=== PATIENT | female | born 1945 | race Caucasian/White ===

== ENCOUNTER 2020-04-02 08:28 | Inpatient (IN) ==
--- NOTE | 2020-03-01 13:00 | PAT Medication Instructions ---
Medication Instructions Date of Service March 01, 2020 Home Medications Medication Instructions Recorded albuterol sulfate 90 mcg/actuation 2 puffs INH Q4H PRN #3 inhaler 02/13/20 aerosol inhaler budesonide-formoterol HFA 160 2 puffs INH BID #3 inhaler 02/13/20 mcg-4.5 mcg/actuation aerosol inhaler atorvastatin 10 mg tablet 10 mg PO QPM esomeprazole magnesium 40 mg capsule,delayed release 40 mg PO QPM hydrochlorothiazide 25 mg tablet 25 mg PO QAM levothyroxine 75 mcg capsule 75 mcg PO QAM lisinopril 10 mg tablet 10 mg PO QPM loratadine 10 mg capsule 20 mg PO QAM potassium chloride 20 mEq tablet,extended release 20 meq PO QPM sitagliptin 100 mg tablet 100 mg PO QAM sucralfate 1 gram tablet 1 gm PO BID albuterol sulfate 90 mcg/actuation aerosol inhaler 2 puffs INH Q4H PRN budesonide-formoterol HFA 160 mcg-4.5 mcg/actuation aerosol inhaler 2 puffs INH BID Albuterol 1 inh INHALATION UD PRN 0 acetaminophen [Tylenol Arthritis Pain] 650 mg PO Q8H PRN alprazolam [Xanax] 0.25 mg PO BID PRN celecoxib [Celebrex] 200 mg PO BID tiotropium bromide [Spiriva Respimat] 2 puffs INH QAM ASK your surgeon for instructions celecoxib [Celebrex] 200 mg PO BID DO NOT take the morning of surgery loratadine 10 mg capsule 20 mg PO QAM sitagliptin 100 mg tablet 100 mg PO QAM sucralfate 1 gram tablet 1 gm PO BID hydrochlorothiazide 25 mg tablet 25 mg PO QAM Take morning of surgery With a small sip of water, OTHERWISE NOTHING TO EAT OR DRINK AFTER MIDNIGHT: albuterol sulfate 90 mcg/actuation aerosol inhaler 2 puffs INH Q4H PRN (use if needed; please bring with you to hospital day of surgery if possible) budesonide-formoterol HFA 160 mcg-4.5 mcg/actuation aerosol inhaler 2 puffs INH BID Albuterol 1 inh INHALATION UD PRN (if needed) acetaminophen [Tylenol Arthritis Pain] 650 mg PO Q8H PRN (okay to take up to 4 hours prior to surgery if needed) alprazolam [Xanax] 0.25 mg PO BID PRN (if needed) tiotropium bromide [Spiriva Respimat] 2 puffs INH QAM levothyroxine 75 mcg capsule 75 mcg PO QAM Take evening before surgery albuterol sulfate 90 mcg/actuation aerosol inhaler 2 puffs INH Q4H PRN (if needed) budesonide-formoterol HFA 160 mcg-4.5 mcg/actuation aerosol inhaler 2 puffs INH BID Albuterol 1 inh INHALATION UD PRN (if needed) acetaminophen [Tylenol Arthritis Pain] 650 mg PO Q8H PRN (if needed) alprazolam [Xanax] 0.25 mg PO BID PRN (if needed) lisinopril 10 mg tablet 10 mg PO QPM potassium chloride 20 mEq tablet,extended release 20 meq PO QPM sucralfate 1 gram tablet 1 gm PO BID atorvastatin 10 mg tablet 10 mg PO QPM esomeprazole magnesium 40 mg capsule,delayed release 40 mg PO QPM Other Notes If you have any questions please call us at [phone] or [phone] or [phone] or [phone]
--- NOTE | 2020-03-02 13:58 | Anesthesiology Consultation ---
Date of Service March 02, 2020 Assessment & Plan (1) Encounter for pre-operative examination: Chart Review Chart Review: Acceptable Risk for Surgery (pending PCP clearance and Covid testing) and Patient seen in Pre Admission Testing - Check BSG AM DOS Pending surgeon ordered PCP clearance scheduled 03/31 Per PAT appt 03/02/20- pt resides in [place]. No other travel. Educated Covid test needed done three business days prior to surgery- follow up with surgeon for this. Did educated patient on the importance of social distancing, masking and self quaranting from time of test until surgery. Teaching & Discussion Pre-Anesthesia Teaching/Discussion Notes: Instructed NPO after midnight before s urgery,except medications with 15 cc of water. Medication instructions provided according to the PAT guidelines. History Surgery Operation Date: 04/02/20 13:10 Proposed Procedures p Right Total Knee Arthroplasty - Jared Girard DO Height/Weight Height: 4 ft 11 in Weight: 70.3 kg Allergies Allergy/AdvReac Type Severity Reaction Status Date / Time latex Allergy Mild ITCHY SKIN Verified 02/27/20 11:02 WITH GLOVES aspirin Allergy Unknown Unknown Verified 02/27/20 11:01 doxycycline Allergy Unknown Unknown Verified 02/27/20 11:01 Iodinated Contrast Media Allergy Unknown Unknown Verified 02/27/20 11:01 Penicillins Allergy Unknown Unknown Verified 02/27/20 11:01 Medications Home Medications Medication Instructions Recorded Confirmed Last Taken atorvastatin 10 mg tablet 10 mg PO QPM 07/28/19 02/27/20 Unknown esomeprazole magnesium 40 mg 40 mg PO QPM cap 07/28/19 02/27/20 Unknown capsule,delayed release hydrochlorothiazide 25 mg tablet 25 mg PO QAM 07/28/19 02/27/20 Unknown levothyroxine 75 mcg capsule 75 mcg PO QAM 07/28/19 02/27/20 Unknown lisinopril 10 mg tablet 10 mg PO QPM 07/28/19 02/27/20 Unknown loratadine 10 mg capsule 20 mg PO QAM 07/28/19 02/27/20 Unknown potassium chloride 20 mEq 20 meq PO QPM 07/28/19 02/27/20 Unknown tablet,extended release sitagliptin 100 mg tablet 100 mg PO QAM 07/28/19 02/27/20 Unknown sucralfate 1 gram tablet 1 gm PO BID 07/28/19 02/27/20 Unknown albuterol sulfate 90 mcg/actuation 2 puffs INH Q4H PRN #3 inhaler 02/13/20 02/27/20 Unknown aerosol inhaler budesonide-formoterol HFA 160 2 puffs INH BID #3 inhaler 02/13/20 02/27/20 Unknown mcg-4.5 mcg/actuation aerosol inhaler Albuterol 1 inh INHALATION UD PRN 02/27/20 02/27/20 Unknown acetaminophen [Tylenol Arthritis 650 mg PO Q8H PRN 02/27/20 02/27/20 Unknown Pain] alprazolam [Xanax] 0.25 mg PO BID PRN 02/27/20 02/27/20 Unknown celecoxib [Celebrex] 200 mg PO BID 02/27/20 02/27/20 Unknown tiotropium bromide [Spiriva 2 puffs INH QAM 02/27/20 02/27/20 Unknown Respimat] Past Medical History Medical History Anxiety Asthma Well controlled and stable Barretts esophagus Chronic obstructive pulmonary disease Controlled and stable- follows with pulm Diabetes mellitus, type 2 Well controlled and stable GERD (gastroesophageal reflux disease) Well controlled and stable Hiatal hernia Hyperlipidemia Hypertension Hypothyroidism Osteoarthritis SOB (shortness of breath) on exertion DEPENDING HUMUDITY Exercise / Class Metabolic Activity III < 4 Walking/Shop/Light housework (going up hill- mild SOB no chest pain ) Past Family History Family History Sister Family history of reaction to anesthesia PONV Family history of diabetes mellitus Past Surgical History Surgical History H/O nasal septoplasty History of bilateral tubal ligation History of cholecystectomy History of colonoscopy X MULTIPLE History of esophagogastroduodenoscopy (EGD) Past Anesthesia History No Hx of Anesthesia Complications and No Family Hx of Anesthesia Complications (with exception with sister who has PONV ) History of PONV No Hx of PONV and Hx of Motion Sickness Social History Smoking Status: Never smoker Do You Dip or Chew Tobacco: No Hx Alcohol Use: No Hx Substance Use: No Review of Systems Mild chronic cough and LOPEZ- secondary to asthma/COPD Hx of sleep study- no FRANCESCA Blood transfusion with childbirth Patient denies chest pain, shortness of breath, wheezing, palpitations. No hx of seizures, stroke, [place], apnea/snoring. No hx of blood clots Physical Exam Vital Signs VITALS BP 137/72 P 84 TEMP 98.4 SP02 95% RESP 16 Constitutional no acute distress ENMT Mouth: no TMJ clicking Thyromental Distance: > or= 3.5 Finger Breadths (4.0) Mallampati Class: I Full dentures top and bottom Neck neck extension not limited Respiratory normal respiratory effort; no respiratory distress Auscultation: lungs clear to auscultation bilaterally; no wheezes Cardiovascular Rate/Rhythm: regular rate and regular rhythm Heart Sounds: no murmur Vessels: no carotid bruit Musculoskeletal Spine: no pain with cervical ROM Neurologic moves all extremities Psychiatric Orientation: alert Testing Laboratory Results 03/02/20 14:10 03/02/20 14:10 PT 10.6 Seconds (9.0-12.0) 03/02/20 14:10 INR 1.0 (0.9-1.1) 03/02/20 14:10 APTT 33.7 Seconds (21.0-31.0) H 03/02/20 14:10 Hemoglobin A1c 6.3 % (4.5-5.6) H 03/02/20 14:10 Urine Color Yellow 03/02/20 14:10 Urine Appearance Clear (Clear) 03/02/20 14:10 Urine pH 5.0 (4.5-7.5) 03/02/20 14:10 Ur Specific [place] 1.032 (1.000-1.030) H 03/02/20 14:10 Urine Protein Negative (Negative) 03/02/20 14:10 Urine Glucose (UA) Negative (Negative) 03/02/20 14:10 Urine Ketones Negative (Negative) 03/02/20 14:10 Urine Nitrite Negative (Negative) 03/02/20 14:10 Ur Leukocyte Esterase Negative (Negative) 03/02/20 14:10 Blood Type A Positive 03/02/20 14:10 Antibody Screen NEGATIVE 03/02/20 14:10 Electrocardiogram Date: 03/02/20 Findings: + NSR @ (82) Chest X-Ray Date: 03/02/20 Findings: + NAD Echocardiogram Date: 07/19/16 EF: 55% LV Function: normal RV mildly dilated with normal function. Mild AR/TR
--- NOTE | 2020-03-02 14:39 | XRay Report ---
XR chest Pre-admission PA/Lat CLINICAL HISTORY: PAT COMPARISON STUDY: No previous studies for comparison. FINDINGS: The bones soft tissues and hemidiaphragms are normal. The cardiomediastinal silhouette is n ormal. The lungs are clear. The pulmonary vasculature is normal. IMPRESSION: Negative chest. ACT 112: Negative or not required by law. The above report was generated using voice recognition software. It may contain grammatical, syntax or spelling errors. Electronically signed by: Dudley Zhu M.D. 03/02/2020 2:37 PM
[2020-03-02 15:41] LABS: Appearance Urine Clear (Clear); Basophils # (auto) 0.05 K/uL (0-0.2); Basophils % (auto) 0.7 %; Bilirubin Urine Negative (Negative); Blood Urine Negative (Negative); Color Urine Yellow; Eosinophils # (auto) 0.11 K/uL (0-0.5); Eosinophils % (auto) 1.5 %; Glucose Urine UA Negative (Negative); Hematocrit (blood only) 39.5 % (37-47); Hemoglobin 12.8 g/dL (12.0-16.0); Immature Granulocytes # (auto) 0.01 K/uL (0.00-0.02); Immature Granulocytes % (auto) 0.1 %; Ketones Urine Negative (Negative); Leukocyte Esterase Urine Negative (Negative); Lymphocytes # (auto) 1.31 K/uL (1.2-3.4); Lymphocytes % (auto) 17.6 %; Mean Corpuscular Hemoglobin 32.2 pg (25-34); Mean Corpuscular Hgb Conc 32.4 g/dL (32-36); Mean Corpuscular Volume 99.2 fL (80-100); Mean Platelet Volume 9.8 fL (7.4-10.4); Monocytes # (auto) 1.15 K/uL (0.11-0.59); Monocytes % (auto) 15.4 %; Neutrophils # (auto) 4.82 K/uL (1.4-6.5); Neutrophils % (auto) 64.7 %; Nitrite Urine Negative (Negative); Platelet Count 378 K/uL (130-400); Protein Urine Negative (Negative); RDW Coefficient of Variation 12.3 % (11.5-14.5); RDW Standard Deviation 44.7 fL (36.4-46.3); Red Blood Count 3.98 M/uL (4.2-5.4); Specific Gravity Urine 1.032 (1.000-1.030); Urobilinogen Urine Negative (Negative); White Blood Count 7.45 K/uL (4.8-10.8)
[2020-03-02 15:48] LABS: Albumin Level 3.6 gm/dl (3.4-5.0); BUN Creatinine Ratio 29.1 (10-20); Creatinine Clr Calc Pharmacy 44.9 ml/min; Est GFR (Non-African American) 61.3; Potassium 3.9 mmol/L (3.5-5.1)
[2020-03-02 15:57] LABS: Partial Thromboplastin Ratio 1.2; Partial Thromboplastin Time 33.7 Seconds (21.0-31.0); Prothrombin Time 10.6 Seconds (9.0-12.0)
[2020-03-03 06:40] LABS: Estimated Average Glucose 134 mg/dl; Hemoglobin A1C 6.3 % (4.5-5.6)
--- NOTE | 2020-03-03 15:16 | Electrocardiogram Report ---
Test Reason : Blood Pressure : / mmHG Vent. Rate : 082 BPM Atrial Rate : 082 BPM P-R Int : 148 ms QRS Dur : 088 ms QT Int : 396 ms P-R-T Axes : 079 019 071 degrees QTc Int : 462 ms Normal sinus rhythm Normal ECG No previous ECGs available Confirmed by Reinaldo Lugo ([id number]) on 03/03/2020 3:15:55 PM Referred By: Jared Girard Confirmed By:Poncho Lugo
--- NOTE | 2020-04-01 15:10 | History & Physical Report ---
Date of Service April 01, 2020 Assessment & Plan (1) Osteoarthritis of right knee: Schedule right TKA for 04.02.2020. All potential risks, benefits, complications, alternatives, and rehab have been discussed with the patient and she wishes to proceed. Plan for ASA 81 mg BID x 4 wks post op for DVT prophylaxis. (2) Flexion contracture of right knee: (3) Genu varum of right lower extremity: History of Present Illness Chief Complaint: right knee pain Primary Care Provider: Mauri Herbert DO This is a patient with chronic right knee pain treated conservatively for knee osteoarthritis for many years. She has failed all conservative management and is now being set up for a right TKA. Allergies Allergy/AdvReac Type Severity Reaction Status Date / Time latex Allergy Mild ITCHY SKIN Verified 02/27/20 11:02 WITH GLOVES aspirin Allergy Unknown Unknown Verified 02/27/20 11:01 doxycycline Allergy Unknown Unknown Verified 02/27/20 11:01 Iodinated Contrast Media Allergy Unknown Unknown Verified 02/27/20 11:01 Penicillins Allergy Unknown Unknown Verified 02/27/20 11:01 Home Medications Home Medications Medication Instructions Recorded Confirmed Type atorvastatin 10 mg tablet 10 mg PO QPM 07/28/19 02/27/20 History esomeprazole magnesium 40 mg 40 mg PO QPM cap 07/28/19 02/27/20 History capsule,delayed release hydrochlorothiazide 25 mg tablet 25 mg PO QAM 07/28/19 02/27/20 History levothyroxine 75 mcg capsule 75 mcg PO QAM 07/28/19 02/27/20 History lisinopril 10 mg tablet 10 mg PO QPM 07/28/19 02/27/20 History loratadine 10 mg capsule 20 mg PO QAM 07/28/19 02/27/20 History potassium chloride 20 mEq 20 meq PO QPM 07/28/19 02/27/20 History tablet,extended release sitagliptin 100 mg tablet 100 mg PO QAM 07/28/19 02/27/20 History sucralfate 1 gram tablet 1 gm PO BID 07/28/19 02/27/20 History albuterol sulfate 90 mcg/actuation 2 puffs INH Q4H PRN #3 inhaler 02/13/20 02/27/20 Rx aerosol inhaler budesonide-formoterol HFA 160 2 puffs INH BID #3 inhaler 02/13/20 02/27/20 Rx mcg-4.5 mcg/actuation aerosol inhaler Albuterol 1 inh INHALATION UD PRN 02/27/20 02/27/20 History acetaminophen [Tylenol Arthritis 650 mg PO Q8H PRN 02/27/20 02/27/20 History Pain] alprazolam [Xanax] 0.25 mg PO BID PRN 02/27/20 02/27/20 History celecoxib [Celebrex] 200 mg PO BID 02/27/20 02/27/20 History tiotropium bromide [Spiriva 2 puffs INH QAM 02/27/20 02/27/20 History Respimat] Past Med/Surg History Medical History Anxiety Asthma Well controlled and stable Barretts esophagus Chronic obstructive pulmonary disease Controlled and stable- follows with pulm Diabetes mellitus, type 2 Well controlled and stable GERD (gastroesophageal reflux disease) Well controlled and stable Hiatal hernia Hyperlipidemia Hypertension Hypothyroidism Osteoarthritis SOB (shortness of breath) on exertion DEPENDING HUMUDITY Surgical History H/O nasal septoplasty History of bilateral tubal ligation History of cholecystectomy History of colonoscopy X MULTIPLE History of esophagogastroduodenoscopy (EGD) Family History Sister Family history of reaction to anesthesia PONV Family history of diabetes mellitus Social History (System 01/12/19 @ 15:10 by Avelina Aleman) Preferred Language: Honduran Communication Ability: Effective Marking Devices Assembler Required: No Beliefs That Will Affect Care: None Current Living Situation: Alone Other Information That Helps Us Care for You: No Feels Safe at Home: Yes Safety Concerns: Feels Safe At This Time Smoking Status: Never smoker Do You Dip or Chew Tobacco: No ; Second Hand Exposure: Yes ; Hx Alcohol Use: No Hx Substance Use: No Physical Exam Constitutional: well developed and well nourished; no acute distress ENMT: external ear and nose normal, oropharynx normal Neck: trachea midline, no thyromegaly Respiratory: normal respiratory effort, lungs clear to auscultation Auscultation: + diminished lung sounds Cardiovascular: Rate/Rhythm: regular rate and regular rhythm Gastrointestinal (Abdomen): normal bowel sounds, soft, nontender, no hepatosplenomegaly Musculoskeletal: Gait: + antalgic gait (right) Knee: + limited ROM of knee (right knee 5-120 degrees), + joint line tenderness (right medial and lateral joint space) and + varus alignment (right); no skin erythema and no ecchymosis Skin: no rashes, warm and dry Neurologic: normal touch/pain/proprioception Psychiatric: A+Ox3, euthymic affect Speech: normal rate/rhythm/volume of speech Lymphatic: no cervical or axillary lymphadenopathy
[~2020-04-02 08:28] MED LIST: ACETAMINOPHEN 500 MG TAB PO SCH; BUPIVACAINE 0.25% 30 ML VIAL ONE; BUPIVACAINE 0.5 % 5 MG/1 ML PF 10ML VIAL ONE; CeleBREX 200 MG CAP PO SCH; FAMOTIDINE 20 MG TAB PO SCH; GABAPENTIN 300 MG CAP PO SCH; LR 500ML BOLUS, THEN 15ML/HR IV SCH; METOCLOPRAMIDE HCL 10 MG TABLET PO SCH; ROPIVACAINE 0.5% HCL/PF 150 MG, BUPIVACAINE 0.5% MPF 30 ML, EPINEPHrine 30MG/30ML (OR U... INSTIL SCH; VANCOMYCIN HCL 1,000 MG/270 ML BAG IV SCH; dexAMETHasone 4 MG TAB PO SCH
[2020-04-02] MEDS ORDERED: ATROPINE SULFATE 0.1 MG/ML 10ML SYR IV PRN (08:42)
[2020-04-02] MEDS ORDERED: ONDANSETRON INJ 2 MG/ML 2 ML VIAL IV PRN ×2 (08:42→15:43)
[2020-04-02] MEDS ORDERED: fentaNYL citrate 100 MCG/2 ML VIAL IV PRN (08:42)
[2020-04-02] MEDS ORDERED: ePHEDrine sulfate 50 MG/ML AMP IV PRN (08:42)
[2020-04-02] MEDS ORDERED: PROPOFOL IV EMULSION 10 MG/ML 20 ML VIAL IV ONE (08:48)
[2020-04-02] MEDS ORDERED: LIDOCAINE HCL 2% 2 ML VIAL/AMP(20MG/ML) INFIL ONE (08:48)
[2020-04-02] MEDS ORDERED: ONDANSETRON INJ 2 MG/ML 2 ML VIAL ONE (08:48)
[2020-04-02] MEDS ORDERED: MIDAZOLAM HCL 1 MG/ML 2ML VIAL ONE (08:49)
[2020-04-02] MEDS ORDERED: fentaNYL citrate 100 MCG/2 ML VIAL ONE (08:49)
[2020-04-02] MEDS ORDERED: ALBUT/IPRATROP 3MG/0.5MG NEB 3 ML VIAL NEB STA (10:18)
--- NOTE | 2020-04-02 10:51 | History & Physical Bridge Note ---
Date of Service April 02, 2020 History & Physical Bridge Note I have examined the patient, reviewed the History & Physical and in the interval since the performance of the History & Physical I have noted the following changes of clinical significance: no changes noted
[2020-04-02] MEDS ORDERED: BACITRACIN INJ 50,000 UNIT VIAL ONE (11:09)
[2020-04-02] MEDS ORDERED: ORTHO JOINT ANESTHETIC ONE (11:09)
--- NOTE | 2020-04-02 13:56 | Post Operative Brief Note ---
Immediate Post Op Note v1 Date of Surgery April 02, 2020 Pre & Post Diagnosis Operation Date: 04/02/20 10:50 Pre-Op Diagnosis: Unilateral Primary Osteoarthritis, Right Knee, degenerative joint disease right knee, genu varum, right knee pain Post-Op Diagnosis: Unilateral Primary Osteoarthritis, Right Knee, degenerative joint disease right knee, genu varum, right knee pain I identified the patient and participated in the time-out.: Yes Procedure Operation Date: 04/02/20 10:50 Actual Procedures p Right Total Knee Arthroplasty with Lopez & Nephew MRI matched components femur size 5, tibia size 3, 32 mm patella, 12 mm posterior stabilized polyethylene (Right) - Jared Girard DO Surgeon Jared Girard DO Stock Fitter Timur Rivera PA-C Estimated Blood Loss 5 Findings Consistent with Post-Op Diagnosis Specimens Bone and tissue right knee Drains Hemovac Drain Anesthesia Type Spinal MAC Complications none Disposition Accompanied Patient To Recovery: No Disposition: Recovery Room
--- NOTE | 2020-04-02 14:13 | Operative Report (OR) ---
DATE OF OPERATION: 04/02/2020 PREOPERATIVE DIAGNOSES: 1. Right knee osteoarthritis. 2. Degenerative joint disease, right knee. 3. Genu varum, right knee. 4. Right knee pain. POSTOPERATIVE DIAGNOSES: 1. Right knee osteoarthritis. 2. Degenerative joint disease, right knee. 3. Genu varum, right knee. 4. Right knee pain. PROCEDURE: Right total knee arthroplasty with Lopez and Nephew MRI matched components, size 5 femur, tibia size 3, 32 mm patella and 12 mm posterior stabilized polyethylene. SURGEON: Jared Girard DO. BUCK SWAMPER: CHANDAN Davey who was present for patient positioning, sterile prep and drape, management of retractors and instruments. He was present through the critical portions of the case including wound closure, application of sterile dressing and transport of the patient to recovery. ANESTHESIA: Spinal, MAC, regional. SPECIMENS: Bone and tissue, right knee. DRAINS: Hemovac x2. COMPLICATIONS: None. BLOOD LOSS: 5 mL. PERTINENT HISTORY: This is a 74-year-old female with chronic progressive and worsening right knee pain. She has attempted and failed conservative management including activity modification, anti-inflammatories, rest, physician-directed home exercises, intra-articular injections and use of an assistive device. Radiographs demonstrate marginal osteophytes, subchondral sclerosis, subchondral cyst, genu varum of the right knee with complete loss of medial joint space. The patient is scheduled for surgery as indicated. All potential risks, benefits, complications, alternatives, rehab potential for incomplete relief of symptoms, need for further surgery, DVT, PE, , persistent pain, swelling, scarring, weakness, neurovascular injury, wound complications, hardware failure, nonunion, malunion and bone fracture were discussed with the patient, and the patient decided to proceed with the procedure as indicated. PROCEDURE DESCRIPTION: The patient was taken to the Operating Suite and placed supine on the Operating Room table after the patient had been administered spinal epidural anesthetic and femoral nerve sheath catheter in the preop holding area. The patient was sedated. Proper operative site was identified. The tourniquet was placed high on the right lower extremity. Right lower extremity was then sterilely prepped and draped in the usual fashion. Elevated and exsanguinated with an Esmarch bandage. Tourniquet inflated to 350 mmHg. Next a midline 10-blade scalpel incision was made directly over the middle one-third of the patella extending to the level of the tibial tubercle. The incision was deepened through the subcutaneous tissue and meticulous hemostasis with electrocautery. Full-thickness skin flaps were developed taking care to avoid neurovascular bundles. Next, median parapatellar capsular incision was made 10-blade scalpel after the superior medial corner had been marked with a marking pen for later reapproximation. Next, patella was everted. Soft tissue releases were performed of the knee including along the anterior medial corner to the level of the MCL, which was protected and released adjacent to the MCL with Randle elevator. Fat pad was resected anteriorly and small half martínez portion of tissue was resected at the superior margin of the dermal articular surface. Next, the patella thickness was measured with caliper and held in everted position with Parish. Next, sagittal saw was used to make orthogonal cuts to the level of the patellar nose. Caliper was used to remeasure the patella and the appropriate sized patellar button, in this case size 32 mm was felt to be most appropriate. The alignment guide was then put in place. Peg holes were drilled and alignment guide was then removed. Next, the femoral cutting block was placed in the distal aspect of the femur and pinned in place. Next the distal femoral cut was made based off the patient's anatomy and MRI patient matched cutting block. Next, a size 5 distal 4-in-1 cutting block was tamped in place then stabilized with pins. Next, the appropriate soft tissue retraction was made and anterior chamfer and posterior chamfer cuts were made with the sagittal saw. Next, the 4-in-1 cutting block was then removed followed by removal of all bone fragments. Next, attention was then directed toward the proximal tibia. Blunt Jerome was placed posterior to the tibia to protract it anteriorly and median and lateral sharp Jerome retractors were placed. Soft tissue and portion of the menisci were then resected at this time and MRI matched proximal tibial cutting block was then pinned in place and proximal tibial cut was made with sagittal saw. Alignment guide was removed. Pins were removed and the proximal fragment of the tibia was then sharply excised and removed. Next, proximal tibial tray trial size 3 was then pinned in place and this was felt to be well matched for the patient's anatomy, pinned in place and keel punch was then utilized with marilyn. Keel punch was then removed and cervical laminar pricing intern was then placed in the medial compartment. The lateral compartment was then inspected for osteophytes and soft tissue impingement. There was found to be none. I then switched to the lateral compartment and medial compartment was then debrided of any soft tissue impingement. Next the laminar pricing intern was removed and the femoral trial, in this case size 5 was then malleted in place, pinned and then femoral notch milling guide was then placed anteriorly. This was then reamed and then punched with sharp punch and mallet. Next, the distal aspect of the femur was then inserted in notch guide and size 12 mm poly was inserted, reduced. Patellar button was then placed in trial and range of motion was performed. Next after range of motion and stability test was performed the implants were found to be appropriate size. Trials were all removed. The posterior capsule was injected with Orthomix. Next the joint was then cleansed with pulsatile lavage using approximately 3 liters normal saline with Bacitracin additive. Next all bony surfaces were then suctioned and drained and standard cementing technique was performed with Palacos G and all excess cement was then removed from around the implant site. A 12 mm posterior stabilized polyethylene bearing was implanted and checked for stability. The patellar button was then cemented in place and held in place with patellar clamp. After suitable drying time, sterile dilute Betadine was used to soak the incision for approximately 3 minutes. Next, a double lumen 10 Barb[place] Hemovac drain was then placed and exiting anterolaterally and the capsule was closed using interrupted #1 Vicryl sutures. The dermis was closed using buried interrupted 2-0 Vicryl and the skin closed with skin linda. A sterile compressive dressing was applied from the toes to the groin and overwrapped with Bandar wrap. Tourniquet was released. The patient was awakened and taken to recovery in stable condition. I attest to the content of the Intraoperative Record and any orders documented therein. Any exceptions are noted below. ROSA
--- NOTE | 2020-04-02 14:36 | XRay Report ---
XR knee RT 1 or 2V routine HISTORY: 74 years-old Female Surgical Post Op COMPARISON: None TECHNIQUE: Two views of the right knee FINDINGS: Right knee total joint arthroplasty and patella resurfacing. Anterior midline skin linda are noted along with expected postsurgical soft tissue swelling and deep tissue air with surgical drainage cath eter. No acute fracture or opaque foreign body. IMPRESSION: Right knee total joint arthroplasty and patella resurfacing with expected postoperative c hanges. ACT 112: Negative or not required by law. The above report was generated using voice recognition software. It may contain grammatical, syntax o r spelling errors. Electronically signed by: Baldemar Greene M.D. 04/02/2020 2:35 PM
--- NOTE | 2020-04-02 15:09 | Anesthesiology Progress Note ---
Date of Service April 02, 2020 Anesthesia Post Procedure Vital Signs Vital Signs: Temp Pulse Pulse Resp BP Pulse Ox 04/02/20 14:45 80 15 117/94 97 04/02/20 14:30 36.9 C 88 20 138/63 93 04/02/20 14:20 91 H 16 142/63 H 96 04/02/20 14:11 36.4 C L 88 22 133/59 L 100 04/02/20 10:28 86 18 95 04/02/20 10:25 87 22 140/66 95 04/02/20 09:50 36.8 C 91 H 20 153/78 H 98 Transfer of Care Handoff Completed per policy Notes Mental Status: alert / awake / arousable and participated in evaluation Nausea / Vomiting: adequately controlled Pain: adequately controlled Airway Patency, RR, SpO2: stable & adequate BP & HR: stable & adequate Hydration State: stable & adequate Neuraxial Anesthesia: was administered and sensory block is resolving Anesthetic Complications: no major complications apparent and Pt Satisfied with anesthetic care
[2020-04-02] MEDS ORDERED: VANCOMYCIN CONSULT ACTIVE PRN (15:43)
[2020-04-02] MEDS ORDERED: MAGNESIUM HYDROXIDE SUSP 30 ML UDC PO PRN (15:43)
[2020-04-02] MEDS ORDERED: bisacodyL 10 MG SUPP PR PRN (15:43)
[2020-04-02] MEDS ORDERED: METOCLOPRAMIDE HCL INJ 5 MG/ML 2 ML VIAL IV PRN (15:43)
[2020-04-02] MEDS ORDERED: ALUMINUM/MAGNESIUM SUSP 30 ML UDC PO PRN (15:43)
[2020-04-02] MEDS ORDERED: ALPRAZolam 0.25 MG TABLET PO PRN (15:43)
[2020-04-02] MEDS ORDERED: NALOXONE HCL 0.4 MG/1 ML VIAL/CARP IV PRN (15:43)
[2020-04-02] MEDS ORDERED: ALBUTEROL HFA 8 GM INHALER INH PRN (15:43)
[2020-04-02] MEDS ORDERED: ALBUTEROL INH PRN (15:43)
[2020-04-02] MEDS ORDERED: HYDROmorphone INJ 0.5 MG/0.5 ML SYR IV PRN (15:43)
[2020-04-02] MEDS ORDERED: OXYCODONE HCL IR 5 MG TAB (IMMEDIATE RELEASE) PO PRN (15:43)
--- NOTE | 2020-04-02 15:48 | Hospitalist Consultation ---
Date of Consultation April 02, 2020 Assessment & Plan (1) Osteoarthritis of right knee: Patient had a TOTAL RKA today. Pain and DVT ramakrishna by primary. (2) Chronic obstructive pulmonary disease: Patient required a rescue neb today. Patient was having SOB prir to the procedure. Currently lungs appear tiight. Will place on nebs x2. Will place on BREO tonight. If improved tomorrow, can remsume home meds at home in PM. (3) Diabetes mellitus, type 2: stable. do not anticipate any requirement of short term insulin (4) Hypothyroidism: continue levothyroxine (5) Hypertension: BP conrolled, resume home meds (6) Hyperlipidemia: stable. continue statin. will continue to monitor History of Present Illness Reason for Consultation: medical management Attending Physician: Jared Girard DO History of Present Illness 74 yo female reports feeling well. She had a right TKA today. She reports prior to surgery she required a nebulizer treatment for her breathing. Currently though she states she breathes fine. She reports that she has to use the rescue inhaler once every 2 weeks. Allergies Allergy/AdvReac Type Severity Reaction Status Date / Time latex Allergy Mild ITCHY SKIN Verified 04/02/20 09:08 WITH GLOVES aspirin Allergy Unknown Unknown Verified 04/02/20 09:08 doxycycline Allergy Unknown Unknown Verified 04/02/20 09:08 Iodinated Contrast Media Allergy Unknown Unknown Verified 04/02/20 09:08 Penicillins Allergy Unknown Unknown Verified 04/02/20 09:08 Home Medications Home Medications Medication Instructions Recorded Confirmed Type atorvastatin 10 mg tablet 10 mg PO QPM 07/28/19 04/02/20 History esomeprazole magnesium 40 mg 40 mg PO QPM cap 07/28/19 04/02/20 History capsule,delayed release hydrochlorothiazide 25 mg tablet 25 mg PO QAM 07/28/19 04/02/20 History levothyroxine 75 mcg capsule 75 mcg PO QAM 07/28/19 04/02/20 History lisinopril 10 mg tablet 10 mg PO QPM 07/28/19 04/02/20 History loratadine 10 mg capsule 20 mg PO QAM 07/28/19 04/02/20 History potassium chloride 20 mEq 20 meq PO QPM 07/28/19 04/02/20 History tablet,extended release sitagliptin 100 mg tablet 100 mg PO QAM 07/28/19 04/02/20 History sucralfate 1 gram tablet 1 gm PO BID 07/28/19 04/02/20 History albuterol sulfate 90 mcg/actuation 2 puffs INH Q4H PRN #3 inhaler 02/13/20 04/02/20 Rx aerosol inhaler budesonide-formoterol HFA 160 2 puffs INH BID #3 inhaler 02/13/20 04/02/20 Rx mcg-4.5 mcg/actuation aerosol inhaler Albuterol 1 inh INHALATION UD PRN 02/27/20 04/02/20 History acetaminophen [Tylenol Arthritis 650 mg PO Q8H PRN 02/27/20 04/02/20 History Pain] alprazolam [Xanax] 0.25 mg PO BID PRN 02/27/20 04/02/20 History celecoxib [Celebrex] 200 mg PO BID 02/27/20 04/02/20 History tiotropium bromide [Spiriva 2 puffs INH QAM 02/27/20 04/02/20 History Respimat] acetaminophen 1,000 mg PO Q8 21 Days #126 tab 04/03/20 Rx aspirin 81 mg PO BID 30 Days #60 tab 04/03/20 Rx docusate sodium 100 mg PO BID 10 Days #20 cap 04/03/20 Rx oxycodone 5 - 10 mg PO Q6H PRN #30 tab 04/03/20 Rx Patient History Medical History Anxiety Asthma Well controlled and stable Barretts esophagus Chronic obstructive pulmonary disease Controlled and stable- follows with pulm Diabetes mellitus, type 2 Well controlled and stable GERD (gastroesophageal reflux disease) Well controlled and stable Hiatal hernia Hyperlipidemia Hypertension Hypothyroidism Osteoarthritis SOB (shortness of breath) on exertion DEPENDING HUMUDITY Surgical History H/O nasal septoplasty History of bilateral tubal ligation History of cholecystectomy History of colonoscopy X MULTIPLE History of esophagogastroduodenoscopy (EGD) Family History Sister Family history of reaction to anesthesia PONV Family history of diabetes mellitus Social History Preferred Language: Vietnamese Communication Ability: Effective 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 Beliefs That Will Affect Care: None Current Living Situation: Alone Other Information That Helps Us Care for You: No Feels Safe at Home: Yes Safety Concerns: Feels Safe At This Time Smoking Status: Never smoker Do You Dip or Chew Tobacco: No ; Second Hand Exposure: Yes ; Hx Alcohol Use: No Hx Substance Use: No Review of Systems Constitutional: no sweats and no malaise Eyes: no diplopia Ear, Nose, Mouth, Throat: no ear trauma and no hyperacusis Respiratory: + dyspnea Cardiovascular: no chest pain with activity and no dyspnea at rest Gastrointestinal: no nausea and no vomiting Genitourinary: no urinary frequency and no urinary incontinence Musculoskeletal: no radicular pain Integumentary: no rash Neurologic: no falls Psychiatric: no hopelessness Endocrine: no fatigue Hematologic / Lymphatic: no coagulopathy Physical Exam Constitutional: WD/WN, vitals as above Eyes: PERRL, conjunctivae normal, anicteric sclerae ENMT: external ear and nose normal, oropharynx normal Neck: trachea midline, no thyromegaly Respiratory: tight decreased breath sounds, wheezing Cardiovascular: RRR, no murmur, no edema Gastrointestinal (Abdomen): normal bowel sounds, soft, nontender, no hepatosplenomegaly Musculoskeletal: no cyanosis or clubbing, extremities motor strength 5/5 Skin: no rashes, warm and dry Neurologic: PERRL, EOMI, accommodation nl, no face palsy, no dysarthria Psychiatric: A+Ox3, euthymic affect Lymphatic: no cervical or axillary lymphadenopathy Results & Data Results & Data ([facility]) Vital Signs (Past 12 Hours) Vital Signs Temp Pulse Pulse Resp BP Pulse Ox 04/02/20 15:15 73 14 113/56 L 97 04/02/20 15:00 80 16 124/57 L 98 04/02/20 14:45 80 15 117/94 97 04/02/20 14:30 36.9 C 88 20 138/63 93 04/02/20 14:20 91 H 16 142/63 H 96 04/02/20 14:11 36.4 C L 88 22 133/59 L 100 04/02/20 10:28 86 18 95 04/02/20 10:25 87 22 140/66 95 04/02/20 09:50 36.8 C 91 H 20 153/78 H 98 PG Care Time/CCT Total # of Minutes Spent Total Time Spent with Patient: Total time spent is greater than 50% in coordination of care (as documented) at patient's floor/unit and/or counseling patient: Coding Level of Care Code 78788 Inpt Consult Level 4 Diagnoses Osteoarthritis of right knee M17.11 Chronic obstructive pulmonary disease J44.9 Diabetes mellitus, type 2 E11.9 Hypothyroidism E03.9 Hypertension I10 Hyperlipidemia E78.5 Time Spent (min) 50
[2020-04-02] MEDS: ACETAMINOPHEN 500 MG TAB PO SCH ×2 (16:20→22:31)
[2020-04-02] MEDS: SODIUM CHLORIDE 0.9% 1000ML 1,000 ML IV SCH (16:20)
[2020-04-02] MEDS ORDERED: TRANEXAMIC ACID / 0.7% NACL 1,000 MG/100 ML BAG IV SCH (18:02)
[2020-04-02] MEDS: KETOROLAC TROMETHAMINE 15 MG/ML VIAL IV SCH ×2 (18:06→23:59)
[2020-04-02] MEDS: LEVALBUTEROL HCL 1.25 MG/3 ML NEB NEB SCH (19:17)
[2020-04-02] MEDS: DOCUSATE SODIUM 100 MG CAP PO SCH (20:46)
[2020-04-02] MEDS: SUCRALFATE 1 GM TAB PO SCH (20:46)
[2020-04-02] MEDS: ASPIRIN 81 MG ECTAB PO SCH (20:47)
[2020-04-02] MEDS ORDERED: SENNA 8.6 MG TAB PO SCH (21:00)
[2020-04-02] MEDS ORDERED: ATORVASTATIN 10 MG TAB PO SCH (21:00)
[2020-04-02] MEDS ORDERED: FLUTICASONE/VILANTEROL 200/25MCG 14 PUFFS/INHALER INH SCH (21:00)
[2020-04-02] MEDS ORDERED: PANTOprazole 40 MG TAB PO SCH (21:00)
[2020-04-02] MEDS ORDERED: POTASSIUM CHLORIDE 20 MEQ TABCR PO SCH (21:00)
[2020-04-02] MEDS ORDERED: lisinopriL 10 MG TAB PO SCH (21:00)
[2020-04-02] MEDS ORDERED: VANCOMYCIN HCL 1,000 MG in SODIUM CHLORIDE 0.9% 250 ML IV SCH (22:00)
[2020-04-03] MEDS: LEVALBUTEROL HCL 1.25 MG/3 ML NEB NEB SCH (01:23)
[2020-04-03] MEDS: SODIUM CHLORIDE 0.9% 1000ML 1,000 ML IV SCH (02:38)
[2020-04-03] MEDS: KETOROLAC TROMETHAMINE 15 MG/ML VIAL IV SCH ×2 (05:34→13:08)
[2020-04-03] MEDS: ACETAMINOPHEN 500 MG TAB PO SCH (05:35)
[2020-04-03 06:04] LABS: Hematocrit (blood only) 29.3 % (37-47); Hemoglobin 9.9 g/dL (12.0-16.0); Mean Corpuscular Hgb Conc 33.8 g/dL (32-36); Mean Corpuscular Volume 97.7 fL (80-100); Platelet Count 285 K/uL (130-400); RDW Coefficient of Variation 12.2 % (11.5-14.5); RDW Standard Deviation 43.9 fL (36.4-46.3); White Blood Count 14.33 K/uL (4.8-10.8)
--- NOTE | 2020-04-03 06:29 | Orthopedic Progress Note ---
Date of Service April 03, 2020 Assessment & Plan (1) History of total right knee replacement: POD #1 s/p Right TKA pt/ot dvt proph with JARVIS/SCD/ASA plan for d/c home with HHPT when stable. will see how she performs in PT today for poss d/c later today Admission and Anticipated Discharge Date Admission Date: April 02, 2020 Supervising Physician Co-Signing Physician Notes Patient seen and examined. Agree with CHANDAN Serrano's note as above. Patient doing very well. Pain controlled. Making good progress with therapy. Plan for discharge home today. Subjective POD #1 s/p Right TKA Review of Systems Constitutional: no fever, no chills and no sweats Respiratory: no cough and no dyspnea Cardiovascular: no chest pain and no dyspnea Gastrointestinal: no abdominal pain, no nausea and no vomiting Physical Exam Physical Exam: Vital Signs Temp 36.7 C 04/03/20 02:35 Pulse 81 04/03/20 02:35 Resp 16 04/03/20 02:35 BP 107/56 L 04/03/20 02:35 Pulse Ox 92 04/03/20 02:35 Intake & Output 04/02/20 04/02/20 04/03/20 06:59 18:59 06:59 Intake Total 1870 / 4271.667 2401.667 / 4271.66 7 Output Total 865 / 1290 425 / 1290 Balance 1005 / 2981.667 1976.667 / 2981.66 7 Weight 70 kg Intake: IV 1270 / 2821.667 1551.667 / 2821.66 7 Lr 1,000 ml @ 15 mls/hr IV . 900 / 900 Q24H MARIA FERNANDA Rx#:[id number] Nss 1000ML 1,0 00 ml @ 100 mls/ 1301.667 / 1301.66 7 hr IV .Q10H SC H Rx#:[id number] TRANEXAMIC ACI D / 0.7% NACL 1, 100 / 100 000 mg In 100 ml @ 600 mls/hr IV Q6H MARIA FERNANDA Rx# :[id number] Vancomycin HCl 1,000 mg In Nss 250 / 250 250 ml @ 125 m ls/hr IV Q12H MARIA FERNANDA Rx#:[id number] VANCOMYCIN HCL 1,000 mg In 270 270 / 270 ml @ 270 mls/h r IV PREOP MARIA FERNANDA Rx #:[id number] IV Perioperative 600 / 600 Oral 850 / 850 Output: Urine 860 / 960 100 / 960 Estimated Blood Loss 5 / 5 Drain Output 325 / 325 Right Knee Hem ovac 325 / 325 Constitutional: WD/WN, vitals as above no acute distress Musculoskeletal: Right Leg: NVDI, calf SNT, negative umer sign. DP palpable, able to wiggle toes/ankle movement without difficulty. dressing clean dry and intact. Results & Data ([facility]) Vital Signs (Past 12 Hours) Vital Signs Temp Pulse Resp BP Pulse Ox 04/03/20 02:35 36.7 C 81 16 107/56 L 92 04/03/20 01:23 71 18 90 04/02/20 23:26 36.7 C 74 16 103/58 L 93 04/02/20 20:10 36.5 C 81 17 121/63 94 04/02/20 19:18 83 16 94 04/02/20 18:39 36.7 C 83 16 120/69 94 Laboratory Results Laboratory Results WBC 14.33 K/uL (4.8-10.8) H 04/03/20 05:38 RBC 3.00 M/uL (4.2-5.4) L 04/03/20 05:38 Hgb 9.9 g/dL (12.0-16.0) L 04/03/20 05:38 Hct 29.3 % (37-47) L 04/03/20 05:38 MCV 97.7 fL (80-100) 04/03/20 05:38 MCH 33.0 pg (25-34) 04/03/20 05:38 MCHC 33.8 g/dL (32-36) 04/03/20 05:38 RDW Std Deviation 43.9 fL (36.4-46.3) 04/03/20 05:38 RDW Coeff of Dionne 12.2 % (11.5-14.5) 04/03/20 05:38 Plt Count 285 K/uL (130-400) 04/03/20 05:38 MPV 9.0 fL (7.4-10.4) 04/03/20 05:38 Immature Gran % (Auto) 0.1 % 03/02/20 14:10 Neut % (Auto) 64.7 % 03/02/20 14:10 Lymph % (Auto) 17.6 % 03/02/20 14:10 Pine % (Auto) 15.4 % 03/02/20 14:10 Eos % (Auto) 1.5 % 03/02/20 14:10 Baso % (Auto) 0.7 % 03/02/20 14:10 Immature Gran # (Auto) 0.01 K/uL (0.00-0.02) 03/02/20 14:10 Neut # (Auto) 4.82 K/uL (1.4-6.5) 03/02/20 14:10 Lymph # (Auto) 1.31 K/uL (1.2-3.4) 03/02/20 14:10 Pine # (Auto) 1.15 K/uL (0.11-0.59) H 03/02/20 14:10 Eos # (Auto) 0.11 K/uL (0-0.5) 03/02/20 14:10 Baso # (Auto) 0.05 K/uL (0-0.2) 03/02/20 14:10 PT 10.6 Seconds (9.0-12.0) 03/02/20 14:10 INR 1.0 (0.9-1.1) 03/02/20 14:10 APTT 33.7 Seconds (21.0-31.0) H 03/02/20 14:10 PTT Ratio 1.2 03/02/20 14:10 Sodium 142 mmol/L (136-145) 03/02/20 14:10 Potassium 3.9 mmol/L (3.5-5.1) 03/02/20 14:10 Chloride 109 mmol/L (98-107) H 03/02/20 14:10 Carbon Dioxide 27 mmol/L (21-32) 03/02/20 14:10 Anion Gap 6.0 (3-11) 03/02/20 14:10 BUN 26 mg/dl (7-18) H 03/02/20 14:10 Creatinine 0.91 mg/dl (0.6-1.2) 03/02/20 14:10 Est Cr Clr Drug Dosing 44.9 ml/min 03/02/20 14:10 Est GFR ( Amer) 71.0 03/02/20 14:10 Est GFR (Non-Af Amer) 61.3 03/02/20 14:10 BUN/Creatinine Ratio 29.1 (10-20) H 03/02/20 14:10 Glucose 111 mg/dl (70-99) H 03/02/20 14:10 POC Glucose 183 mg/dl (70-99) H 04/02/20 20:24 Estimat Average Glucose 134 mg/dl 03/02/20 14:10 Hemoglobin A1c 6.3 % (4.5-5.6) H 03/02/20 14:10 Calcium 9.0 mg/dl (8.5-10.1) 03/02/20 14:10 Albumin 3.6 gm/dl (3.4-5.0) 03/02/20 14:10 Urine Color Yellow 03/02/20 14:10 Urine Appearance Clear (Clear) 03/02/20 14:10 Urine pH 5.0 (4.5-7.5) 03/02/20 14:10 Ur Specific [place] 1.032 (1.000-1.030) H 03/02/20 14:10 Urine Protein Negative (Negative) 03/02/20 14:10 Urine Glucose (UA) Negative (Negative) 03/02/20 14:10 Urine Ketones Negative (Negative) 03/02/20 14:10 Urine Blood Negative (Negative) 03/02/20 14:10 Urine Nitrite Negative (Negative) 03/02/20 14:10 Urine Bilirubin Negative (Negative) 03/02/20 14:10 Urine Urobilinogen Negative (Negative) 03/02/20 14:10 Ur Leukocyte Esterase Negative (Negative) 03/02/20 14:10 Blood Type A Positive 03/02/20 14:10 Antibody Screen NEGATIVE 03/02/20 14:10 Diagnostic Findings XR knee RT 1 or 2V routine HISTORY: 74 years-old Female Surgical Post Op COMPARISON: None TECHNIQUE: Two views of the right knee FINDINGS: Right knee total joint arthroplasty and patella resurfacing. Anterior midline skin linda are noted along with expected postsurgical soft tissue swelling and deep tissue air with surgical drainage catheter. No acute fracture or opaque foreign body. IMPRESSION: Right knee total joint arthroplasty and patella resurfacing with expected postoperative changes.
[2020-04-03] MEDS ORDERED: LEVOTHYROXINE SODIUM 75 MCG TABLET PO SCH (06:30)
[2020-04-03 06:54] LABS: BUN Creatinine Ratio 27.1 (10-20); Calcium 7.9 mg/dl (8.5-10.1); Creatinine Clr Calc Pharmacy 48.5 ml/min; Est GFR (African American) 78.2; Est GFR (Non-African American) 67.5; Potassium 4.3 mmol/L (3.5-5.1)
[2020-04-03] MEDS: DOCUSATE SODIUM 100 MG CAP PO SCH (07:50)
[2020-04-03] MEDS: SUCRALFATE 1 GM TAB PO SCH (07:50)
[2020-04-03] MEDS: ASPIRIN 81 MG ECTAB PO SCH (07:50)
[2020-04-03] MEDS ORDERED: FLUTICASONE/VILANTEROL 200/25MCG 14 PUFFS/INHALER INH SCH (09:00)
[2020-04-03] MEDS ORDERED: MULTIVITAMIN TAB PO SCH (09:00)
[2020-04-03] MEDS ORDERED: UMECLIDINIUM BROMIDE 62.5MCG/BLISTER 7 PUFFS/INHALER INH SCH (09:00)
[2020-04-03] MEDS ORDERED: SITAGLIPTIN PHOSPHATE 100 MG TAB PO SCH (09:00)
[2020-04-03] MEDS ORDERED: LORATADINE 10 MG TAB PO SCH (09:00)
[2020-04-03] MEDS ORDERED: hydroCHLOROthiazide 25 MG TAB PO SCH (09:00)
--- NOTE | 2020-04-03 12:53 | Hospitalist Progress Note ---
Date of Service April 03, 2020 Assessment & Plan (1) Osteoarthritis of right knee: POD #1 - s/p TKR DVT proph - asa 81mg BID Pain control per ortho discussed GI prophylaxis with patient - senna and/or miralax to prevent/treat constipation (2) Chronic obstructive pulmonary disease: mild wheezing - by report - yesterday perioperatively no symptoms today lung exam stable resume normal outpatient inhalers, nebs, etc (3) Diabetes mellitus, type 2: resume oral meds control adequate (4) Hypothyroidism: continue levothyroxine (5) Hypertension: control adequate resume home meds (6) Hyperlipidemia: statin (7) Chronic kidney disease, stage 3a: Cr stable today (8) Acute blood loss anemia: mild consider ferrous sulfate supplementation at d/c ok from medical standpoint to d/c home today thank you for the consult Admission and Anticipated Discharge Date Admission Date: April 02, 2020 Subjective patient was dressed & ready to go when I arrived for my visit w/ her. she had had wheezing yesterday - resolved with serial nebs. no cough. no ongoing dyspnea or LOPEZ. no chest pain. passing flatus. no abd pain. only complaint is that of right knee pain. Review of Systems Constitutional: no fever Respiratory: no dyspnea and no dyspnea on exertion Cardiovascular: no chest pain Gastrointestinal: no abdominal pain Physical Exam Constitutional: well developed and well nourished; no acute distress ENMT: external ear and nose normal, oropharynx normal Respiratory: Auscultation: + diminished lung sounds (bases only ); no crackles and no wheezes Cardiovascular: Rate/Rhythm: regular rate and regular rhythm Heart Sounds: normal S1 and normal S2; no murmur Vessels: posterior tibial pulses present and dorsalis pedis pulses present; no JVD Extremities: no edema Gastrointestinal (Abdomen): normal bowel sounds, soft, nontender, no hepatosplenomegaly Musculoskeletal: right knee w/ mild swelling; dressing intact Psychiatric: A+Ox3, euthymic affect Results & Data Results & Data ([facility]) Vital Signs (Past 12 Hours) Vital Signs Temp Pulse Pulse Resp BP Pulse Ox 04/03/20 12:10 36.4 C L 73 70 16 110/65 92 04/03/20 07:30 36.4 C L 70 16 110/65 92 04/03/20 02:35 36.7 C 81 16 107/56 L 92 04/03/20 01:23 71 18 90 Laboratory Results Laboratory Results - last 24 hr 04/02/20 04/02/20 04/02/20 14:13 17:22 20:24 WBC RBC Hgb Hct MCV MCH MCHC RDW Std Deviation RDW Coeff of Dionne Plt Count MPV Sodium Potassium Chloride Carbon Dioxide Anion Gap BUN Creatinine Est Cr Clr Drug Dosing Est GFR ( Amer) Est GFR (Non-Af Amer) BUN/Creatinine Ratio Glucose POC Glucose 140 H 163 H 183 H Calcium 04/03/20 04/03/20 04/03/20 05:38 05:38 07:52 WBC 14.33 H RBC 3.00 L Hgb 9.9 L Hct 29.3 L MCV 97.7 MCH 33.0 MCHC 33.8 RDW Std Deviation 43.9 RDW Coeff of Dionne 12.2 Plt Count 285 MPV 9.0 Sodium 145 Potassium 4.3 Chloride 114 H Carbon Dioxide 26 Anion Gap 5.0 BUN 23 H Creatinine 0.84 Est Cr Clr Drug Dosing 48.5 Est GFR ( Amer) 78.2 Est GFR (Non-Af Amer) 67.5 BUN/Creatinine Ratio 27.1 H Glucose 111 H POC Glucose 112 H Calcium 7.9 L 04/03/20 11:52 WBC RBC Hgb Hct MCV MCH MCHC RDW Std Deviation RDW Coeff of Dionne Plt Count MPV Sodium Potassium Chloride Carbon Dioxide Anion Gap BUN Creatinine Est Cr Clr Drug Dosing Est GFR ( Amer) Est GFR (Non-Af Amer) BUN/Creatinine Ratio Glucose POC Glucose 116 H Calcium PG Care Time/CCT Total # of Minutes Spent Total Time Spent with Patient: Total time spent is greater than 50% in coordination of care (as documented) at patient's floor/unit and/or counseling patient: Coding Level of Care Code 08659 Subseq Hosp Care Lvl 1 Diagnoses Osteoarthritis of right knee M17.11 Chronic obstructive pulmonary disease J44.9 Diabetes mellitus, type 2 E11.9 Hypothyroidism E03.9 Hypertension I10 Hyperlipidemia E78.5 Chronic kidney disease, stage 3a N18.3 Acute blood loss anemia D62
[2020-04-03] MEDS ORDERED: CeleBREX 200 MG CAP PO SCH (21:00)
--- NOTE | 2020-04-05 12:12 | Discharge Summary ---
Date of Service April 05, 2020 Admission HPI Per Admitting Provider This is a patient with chronic right knee pain treated conservatively for knee osteoarthritis for many years. She has failed all conservative management and is now being set up for a right TKA. Admission Exam Per Admitting Provider Physical Exam Constitutional: well developed and well nourished; no acute distress ENMT: external ear and nose normal, oropharynx normal Neck: trachea midline, no thyromegaly Respiratory: normal respiratory effort, lungs clear to auscultation Auscultation: + diminished lung sounds Cardiovascular: Rate/Rhythm: regular rate and regular rhythm Gastrointestinal (Abdomen): normal bowel sounds, soft, nontender, no hepatosplenomegaly Musculoskeletal: Gait: + antalgic gait (right) Knee: + limited ROM of knee (right knee 5-120 degrees), + joint line tenderness (right medial and lateral joint space) and + varus alignment (right); no skin erythema and no ecchymosis Skin: no rashes, warm and dry Neurologic: normal touch/pain/proprioception Psychiatric: A+Ox3, euthymic affect Speech: normal rate/rhythm/volume of speech Lymphatic: no cervical or axillary lymphadenopathy Principal Diagnosis DJD right knee Discharge Exam Supervising Physician Co-Signing Physician Notes Patient seen and examined. Agree with CHANDAN Serrano's note as above. Patient doing very well. Pain controlled. Making good progress with therapy. Plan for discharge home today. Subjective POD #1 s/p Right TKA Review of Systems Constitutional: no fever, no chills and no sweats Respiratory: no cough and no dyspnea Cardiovascular: no chest pain and no dyspnea Gastrointestinal: no abdominal pain, no nausea and no vomiting Physical Exam Physical Exam: Vital Signs Temp 36.7 C 04/03/20 02:35 Pulse 81 04/03/20 02:35 Resp 16 04/03/20 02:35 BP 107/56 L 04/03/20 02:35 Pulse Ox 92 04/03/20 02:35 Intake & Output 04/02/20 04/02/20 04/03/20 06:59 18:59 06:59 Intake Total 1870 / 4271.667 2401.667 / 4271.66 7 Output Total 865 / 1290 425 / 1290 Balance 1005 / 2981.667 1976.667 / 2981.66 7 Weight 70 kg Intake: IV 1270 / 2821.667 1551.667 / 2821.66 7 Lr 1,000 ml @ 15 mls/hr IV . 900 / 900 Q24H [facility] Rx#:[id number] Nss 1000ML 1,0 00 ml @ 100 mls/ 1301.667 / 1301.66 7 hr IV .Q10H [facility] Rx#:[id number] TRANEXAMIC ACI D / 0.7% NACL 1, 100 / 100 000 mg In 100 ml @ 600 mls/hr IV Q6H [facility] Rx# :[id number] Vancomycin HCl 1,000 mg In Nss 250 / 250 250 ml @ 125 m ls/hr IV Q12H [facility] Rx#:[id number] VANCOMYCIN HCL 1,000 mg In 270 270 / 270 ml @ 270 mls/h r IV PREOP [facility] Rx #:[id number] IV Perioperative 600 / 600 Oral 850 / 850 Output: Urine 860 / 960 100 / 960 Estimated Blood Loss 5 / 5 Drain Output 325 / 325 Right Knee Hem ovac 325 / 325 Constitutional: WD/WN, vitals as above no acute distress Musculoskeletal: Right Leg: NVDI, calf SNT, negative umer sign. DP palpable, able to wiggle toes/ankle movement without difficulty. dressing clean dry and intact. Discharge Data Allergies Allergy/AdvReac Type Severity Reaction Status Date / Time latex Allergy Mild ITCHY SKIN Verified 04/02/20 09:08 WITH GLOVES aspirin Allergy Unknown Unknown Verified 04/02/20 09:08 doxycycline Allergy Unknown Unknown Verified 04/02/20 09:08 Iodinated Contrast Media Allergy Unknown Unknown Verified 04/02/20 09:08 Penicillins Allergy Unknown Unknown Verified 04/02/20 09:08 Consultations 04/02/20 15:43 Consult Case Management - Discharge Planning Routine Consult Hospitalist Routine Procedures Performed Operation Date: 04/02/20 10:50 Actual Procedures p Right Total Knee Arthroplasty(Right) - Jared Girard DO Ordered Studies 04/02/20 05:00 US - OR guided needle placemen Routine Hospital Course (1) Osteoarthritis of right knee: Patient was admitted on the above-noted date and had the above-noted surgery performed which she tolerated well.On her first postoperative day, she was without complaints. Pain was controlled. Denies shortness of breath, chest pain, lightheadedness. Vital signs are stable and she was afebrile dressings are clean, dry, and intact. Calves are soft nontender. Neurovascular intact. Hemoglobin was 9.9. WBCs were 14.3 likely due to surgical stress and preoperative steroids. She will start on physical and occupational therapies of which she progressed well. She continue remained stable and was felt she be discharged home with home health services. Total Time Total Time Spent Total Time Spent (In Minutes): 5 Discharge Plan Discharge Items Patient Disposition: Home - Home Health Services Reason For Visit: Unilateral Primary Osteoarthritis, Right Knee Discharge Diagnosis: right total knee replacement Activity: Per Instructions section Lifting: Wait until after follow-up appointment Weightbearing: Full weightbearing Non-emergency contact: Surgeon Call non-emergency contact if: you have any medication questions, your temperature is above 101, your wound has increased redness, your wound has increased drainage and your wound pain has increased Follow-up/Referrals: Mauri Herbert DO [Primary Care Provider] - Diet: Regular Addtl Attending Provider Instructions: ACTIVITY RECOMMENDATIONS: SELF CARE INSTRUCTIONS AFTER TOTAL KNEE REPLACEMENT A. You may need to continue a physical therapy program after discharge from the hospital. There are several options available to you. Your doctor will assist you in selecting the best one for you. 1. An out-patient facility 2 to 3 times a week for therapy or home therapy. 2. Continue working on all exercises taught to you in the hospital. Your goals should be to increase bending of your knee to 90 degrees and beyond and to fully straighten your knee. B. You may progress at your own pace from walking with a walker or crutches to a cane; then to no assistive devices. C. Make walking a part of your daily routine. Be up as much as comfortable with rest periods throughout the day. Rest with leg elevation is very important. Use the ice wrap frequently for the first 3-4 weeks. D. There are no restrictions on activities. You may ride in a car, shop, participate in notary public and all social activities. E. Wear the long elastic stockings (JARVIS hose) 20 hours a day for 2 weeks after surgery. They can be removed several times a day for laundering and for a bath. F. You may shower, no tub baths until cleared by your doctor. SPECIAL CARE INSTRUCTIONS: VERY IMPORTANT TO READ AND REVIEW A. There are a few signs you need to watch for after you are home. Call [facility] if you notice any of the followin. Increased severe knee pain. Some pain is expected especially when you exercise. 2. Increased swelling in your leg or knee; pain or swelling of the calf muscle in either lower leg. 3. Any fluid drainage from the incision. 4. Shortness of breath or chest pain. B. Please call [facility] at if you have any concerns or questions about your operation or recovery. The doctor or his nurse will return your call promptly. C. You must take antibiotics before dental work, bladder, bowel or other surgery. Your doctor will provide you with a permanent care to carry describing this precaution. IMPORTANT: * REMEMBER TO TAKE ASPIRIN, 81 MG, TWICE DAILY FOR 4 WEEKS UNLESS OTHERWISE DIRECTED. THIS IS YOUR BLOOD THINNER. * HIGH RISK PATIENTS MAY BE PRESCRIBED A STRONGER BLOOD THINNER. THIS WILL BE PROVIDED AT DISCHARGE. * CALL IF INCREASED PAIN, REDNESS, DRAINAGE OR FEVER GREATER THAT 101. * WEAR JARVIS HOSE 20 HOURS PER DAY FOR 2 WEEKS. * YOU MAY HAVE A LARGE BAND-AID LIKE DRESSING (SILVERON). THIS WILL REMAIN ON YOUR INCISION FOR 7 DAYS, THEN CAN BE REMOVED. IF INCISION IS LEAKING THROUGH DRESSING, CALL THE OFFICE . FOLLOW UP VISIT: If appointment is not already scheduled: Please call [facility] to make a follow-up appointment for 2 weeks after your surgery at . Stand-Alone Forms: My [employer], Smoking Cessation Medications and DC Order Prescriptions: New aspirin 81 mg Tablet,Delayed Release (Dr/Ec) 81 mg PO BID 30 Days Qty: 60 RF: 0 acetaminophen 500 mg Tablet 1,000 mg PO Q8 21 Days Qty: 126 RF: 0 oxycodone 5 mg Tablet 5 - 10 mg PO Q6H PRN (Reason: pain) Qty: 30 RF: 0 docusate sodium 100 mg Capsule 100 mg PO BID 10 Days Qty: 20 RF: 0 Continued Symbicort 160-4.5 mcg/actuation HFA aerosol inhaler 2 puffs INH BID Qty: 3 RF: 1 albuterol sulfate [Proventil HFA] 90 mcg/actuation HFA aerosol inhaler 2 puffs INH Q4H PRN (Reason: shortness of breath or wheezing) Qty: 3 RF: 1 atorvastatin 10 mg tablet 10 mg PO QPM RF: 0 sucralfate [Carafate] 1 gram tablet 1 gm PO BID RF: 0 hydrochlorothiazide 25 mg tablet 25 mg PO QAM RF: 0 Januvia 100 mg tablet 100 mg PO QAM RF: 0 potassium chloride 20 mEq tablet extended release 20 meq PO QPM RF: 0 levothyroxine 75 mcg capsule 75 mcg PO QAM RF: 0 lisinopril 10 mg tablet 10 mg PO QPM RF: 0 loratadine 10 mg capsule 20 mg PO QAM RF: 0 esomeprazole magnesium [Nexium] 40 mg capsule,delayed release(DR/EC) 40 mg PO QPM RF: 0 Spiriva Respimat 1.25 mcg/actuation mist 2 puffs INH QAM RF: 0 alprazolam [Xanax] 0.25 mg Tablet 0.25 mg PO BID PRN (Reason: Anxiety) RF: 0 celecoxib [Celebrex] 200 mg Capsule 200 mg PO BID RF: 0 Albuterol 1 inh inhalation UD PRN (Reason: Wheezing) RF: 0 Discontinued acetaminophen [Tylenol Arthritis Pain] 650 mg Tablet Extended Release 650 mg PO Q8H PRN (Reason: Pain) RF: 0 Discharge Orders: Discharge Order (Routine); Ordered 04/03/20 Ordered By: Dudley Nickerson/Other Patient Handouts: Total Knee Replacement Admission Data Admit Date/Time: 04/02/20 14:15 Attending Provider: Jared Girard Admit Provider: Jared Girard Primary Care Provider: Mauri Herbert Other Providers: Carlo Rinaldi ; Mel Caldera ; Abdi Melo ; Sánchez Pereira ; Avelina Mark ; Lance Rutledge ; Ruiz Tamayo ; Daniel Lucas ; Ashlie Alejo ; Karen Hennessy ; Tanya Zelaya ; Jose Maria Melendez ; Marianela Cortes ; Jackie Moore ; Emmett Aleman ; Kelby Pascual ; Joey Burroughs ; Alejandra Duval ; Juan J Perez ; Danish Roper ; Abdi Jones ; George Echeverria ; Nain Lopez ; Dee Cortez ; Senait Cortez ; Marcelo Hunter ; Alberto Rasmussen ; Dewayne Almaguer ; Chaparro Lopez ; Narda Bolanos ; Rony Burk ; [facility] Other Interventions: Discharge Summary Assessment (RN) Last Done: 04/03/20 12:10 DC Date/Time DO NOT enter until pt leaves facility: 04/03/20 13:09
== END 2020-04-03 13:09 | disposition home health service (06) | DRG 470 ==
LOC: ASU 08:28 → 3E 14:15

== ENCOUNTER 2021-02-11 05:12 | Inpatient (IN) ==
--- NOTE | 2021-01-10 14:07 | PAT Medication Instructions ---
Medication Instructions Date of Service January 10, 2021 Home Medications Medication Instructions Recorded albuterol sulfate 90 mcg/actuation 2 puffs INH Q4H PRN #3 inhaler 02/13/20 aerosol inhaler budesonide-formoterol HFA 160 2 inh INH BID #3 inhaler 10/11/20 mcg-4.5 mcg/actuation aerosol inhaler umeclidinium 62.5 mcg/actuation 1 inh INHALATION DAILY #3 inhaler 10/29/20 blister powder for inhalation atorvastatin 10 mg tablet 10 mg PO QPM esomeprazole magnesium 40 mg capsule,delayed release 40 mg PO QPM hydrochlorothiazide 25 mg tablet 25 mg PO QAM levothyroxine 75 mcg capsule 75 mcg PO QAM lisinopril 10 mg tablet 10 mg PO QPM loratadine 10 mg capsule 20 mg PO QAM potassium chloride 20 mEq tablet,extended release 20 meq PO QPM sitagliptin 100 mg tablet 100 mg PO QAM sucralfate 1 gram tablet 1 gm PO BID albuterol sulfate 90 mcg/actuation aerosol inhaler 2 puffs INH Q4H PRN alprazolam [Xanax] 0.25 mg PO BID PRN budesonide-formoterol HFA 160 mcg-4.5 mcg/actuation aerosol inhaler 2 inh INH BID umeclidinium 62.5 mcg/actuation blister powder for inhalation 1 inh INHALATION DAILY albuterol sulfate 2.5 mg INHALATION Q4H PRN artificial tears(hypromellose) 0.3 % eye gel 1 drp OPHTHALMIC (EYE) ONCE PRN magnesium 200 mg tablet 400 mg PO DAILY naphazoline 0.025 %-pheniramine 0.3 % eye drops 1 drp OPHTHALMIC (EYE) QID PRN sumatriptan succinate 100 mg tablet 100 mg PO Q2H PRN DO NOT take the morning of surgery hydrochlorothiazide 25 mg tablet 25 mg PO QAM loratadine 10 mg capsule 20 mg PO QAM sitagliptin 100 mg tablet 100 mg PO QAM sucralfate 1 gram tablet 1 gm PO BID magnesium 200 mg tablet 400 mg PO DAILY Take morning of surgery With a small sip of water, OTHERWISE NOTHING TO EAT OR DRINK AFTER MIDNIGHT: levothyroxine 75 mcg capsule 75 mcg PO QAM albuterol sulfate 90 mcg/actuation aerosol inhaler 2 puffs INH Q4H PRN (if needed, and bring your inhaler with you to the hospital) alprazolam [Xanax] 0.25 mg PO BID PRN (if needed) budesonide-formoterol HFA 160 mcg-4.5 mcg/actuation aerosol inhaler 2 inh INH BID umeclidinium 62.5 mcg/actuation blister powder for inhalation 1 inh INHALATION DAILY albuterol sulfate 2.5 mg INHALATION Q4H PRN (if needed) artificial tears(hypromellose) 0.3 % eye gel 1 drp OPHTHALMIC (EYE) ONCE PRN (if needed) naphazoline 0.025 %-pheniramine 0.3 % eye drops 1 drp OPHTHALMIC (EYE) QID PRN (if needed) sumatriptan succinate 100 mg tablet 100 mg PO Q2H PRN (if needed) Take evening before surgery atorvastatin 10 mg tablet 10 mg PO QPM esomeprazole magnesium 40 mg capsule,delayed release 40 mg PO QPM lisinopril 10 mg tablet 10 mg PO QPM potassium chloride 20 mEq tablet,extended release 20 meq PO QPM sucralfate 1 gram tablet 1 gm PO BID albuterol sulfate 90 mcg/actuation aerosol inhaler 2 puffs INH Q4H PRN (if needed) alprazolam [Xanax] 0.25 mg PO BID PRN (if needed) budesonide-formoterol HFA 160 mcg-4.5 mcg/actuation aerosol inhaler 2 inh INH BID albuterol sulfate 2.5 mg INHALATION Q4H PRN (if needed) artificial tears(hypromellose) 0.3 % eye gel 1 drp OPHTHALMIC (EYE) ONCE PRN (if needed) naphazoline 0.025 %-pheniramine 0.3 % eye drops 1 drp OPHTHALMIC (EYE) QID PRN (if needed) sumatriptan succinate 100 mg tablet 100 mg PO Q2H PRN (if needed) Other Notes If you have any questions please call us at [phone] or [phone] or [phone] or [phone]
--- NOTE | 2021-01-12 12:29 | Anesthesiology Consultation ---
Date of Service January 12, 2021 Assessment & Plan (1) Encounter for pre-operative examination: COVID Status: As of 01/12 assessment, patient denies travel to endemic area, known exposure/sick contacts, or symptoms of COVID19. Patient instructed that they and their household members must follow strict social distancing guidelines, wear a mask in public and avoid travel/events/gatherings for 14 days prior to surgery. Preoperative COVID19 testing to be completed prior to surgery per surgeon's arrangements. Patient made aware to self-isolate as much as possible between COVID testing and surgery. Patient has had her first vaccine and will be receiving the second dose on 01/28. S/P R TKA 04/02/20 @ [facility] -- SAB and adductor canal block x 1 attempt each. RT to pre op for neb treatment prior to OR. 6L O2 given throughout surgery. No complications. Chart Review Chart Review: Acceptable Risk for Surgery (pending pcp clearance) and Patient seen in Pre Admission Testing Teaching & Discussion Instructed NPO after midnight before surgery, except medications with 15 cc of water. Medication instructions provided according to the PAT guidelines. History Surgery Operation Date: 02/11/21 09:35 Proposed Procedures p Left Total Knee Arthroplasty - Jared Girard, Height/Weight Height: 4 ft 11 in Weight: 69.2 kg Allergies Allergy/AdvReac Type Severity Reaction Status Date / Time latex Allergy Mild ITCHY SKIN Verified 12/21/20 16:42 WITH GLOVES aspirin Allergy Unknown Unknown Verified 01/12/21 12:21 doxycycline Allergy Unknown Unknown Verified 12/21/20 16:42 Iodinated Contrast Media Allergy Unknown Unknown Verified 12/21/20 16:42 Penicillins Allergy Unknown Unknown Verified 12/21/20 16:42 Medications Home Medications Medication Instructions Recorded Confirmed Last Taken atorvastatin 10 mg tablet 10 mg PO QPM 07/28/19 12/21/20 04/01/20 22:00 esomeprazole magnesium 40 mg 40 mg PO QPM cap 07/28/19 12/21/20 04/01/20 18:00 capsule,delayed release hydrochlorothiazide 25 mg tablet 25 mg PO QAM 07/28/19 12/21/20 04/01/20 08:00 levothyroxine 75 mcg capsule 75 mcg PO QAM 07/28/19 12/21/20 04/02/20 05:00 lisinopril 10 mg tablet 10 mg PO QPM 07/28/19 12/21/20 04/01/20 22:00 loratadine 10 mg capsule 20 mg PO QAM 07/28/19 12/21/20 04/01/20 08:00 potassium chloride 20 mEq 20 meq PO QPM 07/28/19 12/21/20 04/01/20 22:00 tablet,extended release sitagliptin 100 mg tablet 100 mg PO QAM 07/28/19 12/21/20 04/01/20 08:00 sucralfate 1 gram tablet 1 gm PO BID 07/28/19 12/21/20 04/01/20 22:00 albuterol sulfate 90 mcg/actuation 2 puffs INH Q4H PRN #3 inhaler 02/13/20 12/21/20 Unknown aerosol inhaler alprazolam [Xanax] 0.25 mg PO BID PRN 02/27/20 12/21/20 2 Weeks Ago ~03/19/20 budesonide-formoterol HFA 160 2 inh INH BID #3 inhaler 10/11/20 12/21/20 Unknown mcg-4.5 mcg/actuation aerosol inhaler umeclidinium 62.5 mcg/actuation 1 inh INHALATION DAILY #3 inhaler 10/29/20 12/21/20 Unknown blister powder for inhalation albuterol sulfate 2.5 mg INHALATION Q4H PRN 11/15/20 12/21/20 Unknown artificial tears(hypromellose) 0.3 1 drp OPHTHALMIC (EYE) ONCE PRN g 11/15/20 12/21/20 Unknown % eye gel magnesium 200 mg tablet 400 mg PO DAILY tab 11/15/20 12/21/20 Unknown naphazoline 0.025 %-pheniramine 1 drp OPHTHALMIC (EYE) QID PRN 11/15/20 12/21/20 Unknown 0.3 % eye drops sumatriptan succinate 100 mg tablet 100 mg PO Q2H PRN 11/15/20 12/21/20 Unknown Past Medical History Medical History (Updated 01/12/21 @ 15:58 by Sravan Dumas) Anxiety Asthma Well controlled and stable, albuterol rescue 1-2x per month Barretts esophagus Chronic obstructive pulmonary disease Controlled and stable- follows with pulm Diabetes mellitus, type 2 Well controlled and stable GERD (gastroesophageal reflux disease) Well controlled and stable Hiatal hernia History of nephrolithiasis Hyperlipidemia Hypertension Hypothyroidism Osteoarthritis Scoliosis of thoracolumbar spine SOB (shortness of breath) on exertion Only in significant humidity Exercise / Class Metabolic Activity II 4-5 Yardwork/Stairs/Walk up hill (Denies CP or limiting SOB with 1 FOS) Past Family History Family History Sister Family history of reaction to anesthesia PONV Family history of diabetes mellitus Past Surgical History Surgical History H/O nasal septoplasty History of bilateral tubal ligation History of cholecystectomy History of colonoscopy X MULTIPLE History of cystoscopy History of esophagogastroduodenoscopy (EGD) History of removal of ureteral stent History of right knee joint replacement 03/2020 [facility] History of ureter stent Past Anesthesia History No Family Hx of Anesthesia Complications (other than sister with severe PONV) Patient has needed post-op nebulizer treatments in the past. History of PONV No Hx of PONV and No Hx of Motion Sickness Social History Smoking Status: Never smoker Do You Dip or Chew Tobacco: No Hx Alcohol Use: No Hx Substance Use: No substance use type: does not use Review of Systems Pt denies any recent chest pain, shortness of breath, palpitations, cough, fever, URI, or uncontrolled acid reflux. Physical Exam Vital Signs BP: 144/74 P: 88bpm SPO2: 96% RA T: 98.0 F R: 16 ENMT Mouth: + dentures and + edentulous Neck normal visual inspection; neck extension not limited Respiratory normal respiratory effort, lungs clear to auscultation Auscultation: + diminished lung sounds (B/L) Cardiovascular RRR, no murmur, no edema (very rare ectopic beat) Musculoskeletal Spine: + scoliosis (upper thoracic) Lab Results Anesthesia Preop Results Results Anesthesia Widget: Na 139 mmol/L (136-145) 01/12/21 K 4.0 mmol/L (3.5-5.1) 01/12/21 Cl 109 mmol/L (98-107) H 01/12/21 CO2 26 mmol/L (21-32) 01/12/21 BUN 27 mg/dl (7-18) H 01/12/21 Creat 1.00 mg/dl (0.6-1.2) 01/12/21 Glucose Level 118 mg/dl (70-99) H 01/12/21 TSH 1.190 uIu/ml (0.300-4.500) 01/12/21 Testing Laboratory Results 01/12/21 12:34 PT 10.0 Seconds (9.0-12.0) 01/12/21 12:34 INR 1.0 (0.9-1.1) 01/12/21 12:34 APTT 27.9 Seconds (21.0-31.0) 01/12/21 12:34 Hemoglobin A1c 6.4 % (4.5-5.6) H 01/12/21 12:34 Urine Color Yellow 01/12/21 12:34 Urine Appearance Clear (Clear) 01/12/21 12:34 Urine pH 5.5 (4.5-7.5) 01/12/21 12:34 Ur Specific Ferris 1.022 (1.000-1.030) 01/12/21 12:34 Urine Protein Negative (Negative) 01/12/21 12:34 Urine Glucose (UA) Negative (Negative) 01/12/21 12:34 Urine Ketones Negative (Negative) 01/12/21 12:34 Urine Nitrite Negative (Negative) 01/12/21 12:34 Ur Leukocyte Esterase Negative (Negative) 01/12/21 12:34 Blood Type A Positive 01/12/21 12:34 Antibody Screen NEGATIVE 01/12/21 12:34 Electrocardiogram Date: 03/02/20 Findings: + NSR @ (82bpm) Chest X-Ray Date: 01/12/21 FINDINGS: Moderate to severe S-shaped scoliosis of the thoracolumbar spine, unchanged. The heart remains mildly enlarged. Mild chronic interstitial thick ening, unchanged. There is mild emphysema. The lungs are hyperexpanded. Old, healed right lower rib fractures. No new focal lung consolidations to suggest pneumonia. No evidence for pulmonary edema. No pleural effusions. No pneumothorax. IMPRESSION: No significant change compared to the prior study. No acute process. Echocardiogram Date: 07/19/16 EF: 55% Normal LV function, mildly dilated RV with normal function. Normal left atrium. Normal right atrium. Mild aortic regurgitation. Trace mitral regurgitation. Mild tricuspid regurgitation. Normal PA pressure. Normal aorta.
[2021-01-12 13:18] LABS: Appearance Urine Clear (Clear); Bilirubin Urine Negative (Negative); Blood Urine Negative (Negative); Color Urine Yellow; Glucose Urine UA Negative (Negative); Ketones Urine Negative (Negative); Leukocyte Esterase Urine Negative (Negative); Nitrite Urine Negative (Negative); Protein Urine Negative (Negative); Specific Gravity Urine 1.022 (1.000-1.030); Urobilinogen Urine Negative (Negative); pH Urine 5.5 (4.5-7.5)
[2021-01-12 13:31] LABS: Partial Thromboplastin Ratio 1.1; Partial Thromboplastin Time 27.9 Seconds (21.0-31.0)
[2021-01-12 13:33] LABS: Basophils # (auto) 0.04 K/uL (0-0.2); Basophils % (auto) 0.6 %; Eosinophils # (auto) 0.09 K/uL (0-0.5); Eosinophils % (auto) 1.3 %; Hematocrit (blood only) 35.5 % (37-47); Hemoglobin 11.6 g/dL (12.0-16.0); Immature Granulocytes # (auto) 0.02 K/uL (0.00-0.02); Immature Granulocytes % (auto) 0.3 %; Lymphocytes # (auto) 1.58 K/uL (1.2-3.4); Lymphocytes % (auto) 22.4 %; Mean Corpuscular Hemoglobin 29.7 pg (25-34); Mean Corpuscular Hgb Conc 32.7 g/dL (32-36); Mean Corpuscular Volume 90.8 fL (80-100); Mean Platelet Volume 9.3 fL (7.4-10.4); Monocytes # (auto) 0.82 K/uL (0.11-0.59); Monocytes % (auto) 11.6 %; Neutrophils # (auto) 4.49 K/uL (1.4-6.5); Neutrophils % (auto) 63.8 %; Platelet Count 333 K/uL (130-400); RDW Coefficient of Variation 16.3 % (11.5-14.5); Red Blood Count 3.91 M/uL (4.2-5.4); White Blood Count 7.04 K/uL (4.8-10.8)
--- NOTE | 2021-01-12 13:33 | XRay Report ---
XR chest Pre-admission PA/Lat HISTORY: Preop. Joint pain. COMPARISON: Chest 03/02/2020. FINDINGS: Moderate to severe S-shaped scoliosis of the thoracolumbar spine, unchanged. The heart denae ins mildly enlarged. Mild chronic interstitial thickening, unchanged. There is mild emphysema. The jose eduardo ngs are hyperexpanded. Old, healed right lower rib fractures. No new focal lung consolidations to sug gest pneumonia. No evidence for pulmonary edema. No pleural effusions. No pneumothorax. IMPRESSION: No significant change compared to the prior study. No acute process. ACT 112: Negative or not required by law. Electronically signed by: Shan Allen M.D. 01/12/2021 1:31 PM
[2021-01-12 13:53] LABS: Estimated Average Glucose 137 mg/dl; Hemoglobin A1C 6.4 % (4.5-5.6)
--- NOTE | 2021-02-10 14:38 | History & Physical Report ---
Date of Service February 10, 2021 Assessment & Plan (1) Osteoarthritis of left knee: Schedule a left knee TKA for 02.11.21. All potential risks, benefits, complications, alternatives, and rehab have been discussed with the patient and she wishes to proceed. Plan for d/c home with home health and Xarelto 10 mg daily x 2 wks post op for DVT prophylaxis. (2) Genu varum of left lower extremity: History of Present Illness Chief Complaint: left knee pain Primary Care Provider: Mauri Herbert DO This is a patient with chronic left knee pain that has been treated conservatively for knee DJD. She has failed all conservative management and is now being set up for surgical tx. Allergies Allergy/AdvReac Type Severity Reaction Status Date / Time latex Allergy Mild ITCHY SKIN Verified 12/21/20 16:42 WITH GLOVES aspirin Allergy Unknown Unknown Verified 01/12/21 12:21 doxycycline Allergy Unknown Unknown Verified 12/21/20 16:42 Iodinated Contrast Media Allergy Unknown Unknown Verified 12/21/20 16:42 Penicillins Allergy Unknown Unknown Verified 12/21/20 16:42 Home Medications Medication Instructions Recorded Confirmed Type atorvastatin 10 mg tablet 10 mg PO QPM 07/28/19 12/21/20 History esomeprazole magnesium 40 mg 40 mg PO QPM cap 07/28/19 12/21/20 History capsule,delayed release hydrochlorothiazide 25 mg tablet 25 mg PO QAM 07/28/19 12/21/20 History levothyroxine 75 mcg capsule 75 mcg PO QAM 07/28/19 12/21/20 History lisinopril 10 mg tablet 10 mg PO QPM 07/28/19 12/21/20 History loratadine 10 mg capsule 20 mg PO QAM 07/28/19 12/21/20 History potassium chloride 20 mEq 20 meq PO QPM 07/28/19 12/21/20 History tablet,extended release sitagliptin 100 mg tablet 100 mg PO QAM 07/28/19 12/21/20 History sucralfate 1 gram tablet 1 gm PO BID 07/28/19 12/21/20 History albuterol sulfate 90 mcg/actuation 2 puffs INH Q4H PRN #3 inhaler 02/13/20 12/21/20 Rx aerosol inhaler alprazolam [Xanax] 0.25 mg PO BID PRN 02/27/20 12/21/20 History budesonide-formoterol HFA 160 2 inh INH BID #3 inhaler 10/11/20 12/21/20 Rx mcg-4.5 mcg/actuation aerosol inhaler umeclidinium 62.5 mcg/actuation 1 inh INHALATION DAILY #3 inhaler 10/29/20 12/21/20 Rx blister powder for inhalation albuterol sulfate 2.5 mg INHALATION Q4H PRN 11/15/20 12/21/20 History artificial tears(hypromellose) 0.3 1 drp OPHTHALMIC (EYE) ONCE PRN g 11/15/20 12/21/20 History % eye gel magnesium 200 mg tablet 400 mg PO DAILY tab 11/15/20 12/21/20 History naphazoline 0.025 %-pheniramine 1 drp OPHTHALMIC (EYE) QID PRN 11/15/20 12/21/20 History 0.3 % eye drops sumatriptan succinate 100 mg tablet 100 mg PO Q2H PRN 11/15/20 12/21/20 History Past Med/Surg History Medical History (Updated 02/10/21 @ 14:34 by Dean Pretty PA-C) Anxiety Asthma Well controlled and stable, albuterol rescue 1-2x per month Barretts esophagus Chronic obstructive pulmonary disease Controlled and stable- follows with pulm Diabetes mellitus, type 2 Well controlled and stable GERD (gastroesophageal reflux disease) Well controlled and stable Hiatal hernia History of nephrolithiasis Hyperlipidemia Hypertension Hypothyroidism Osteoarthritis Scoliosis of thoracolumbar spine SOB (shortness of breath) on exertion Only in significant humidity Surgical History H/O nasal septoplasty History of bilateral tubal ligation History of cholecystectomy History of colonoscopy X MULTIPLE History of cystoscopy History of esophagogastroduodenoscopy (EGD) History of removal of ureteral stent History of right knee joint replacement 03/2020 [facility] History of ureter stent Family History Sister Family history of reaction to anesthesia PONV Family history of diabetes mellitus Social History Smoking Status: Never smoker Second Hand Exposure: Yes (as a child and was a smoker); Hx Alcohol Use: No Hx Substance Use: No Preferred Language: Danish Communication Ability: Effective 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 Beliefs That Will Affect Care: None marital status: / Current Living Situation: Alone Feels Safe at Home: Yes Assistive Devices: Cane, Denture - Upper, Denture - Lower and Glasses Physical Exam Constitutional: well developed and well nourished; no acute distress ENMT: external ear and nose normal, oropharynx normal Neck: trachea midline, no thyromegaly Respiratory: normal respiratory effort, lungs clear to auscultation Cardiovascular: Rate/Rhythm: regular rate and regular rhythm Gastrointestinal (Abdomen): normal bowel sounds, soft, nontender, no hepatosplenomegaly Musculoskeletal: Knee: + ecchymosis, + knee ROM with crepitation (left), + joint line tenderness (left medial knee) and + varus alignment (left); no skin erythema Skin: no rashes, warm and dry Trauma: no evidence of skin trauma Neurologic: normal touch/pain/proprioception Psychiatric: A+Ox3, euthymic affect Speech: normal rate/rhythm/volume of speech Lymphatic: no cervical or axillary lymphadenopathy
[2021-02-11] MEDS ORDERED: CLINDAMYCIN 600 MG/54 ML BAG IV SCH (06:00)
[2021-02-11] MEDS ORDERED: LR 500ML BOLUS, THEN 15ML/HR IV SCH (06:00)
[2021-02-11] MEDS ORDERED: GABAPENTIN 300 MG CAP PO SCH (06:00)
[2021-02-11] MEDS ORDERED: TRANEXAMIC ACID 1,000 MG **IV Pre-op IV SCH (06:00)
[2021-02-11] MEDS ORDERED: ROPIVACAINE 0.5% HCL/PF 150 MG, BUPIVACAINE 0.75% MPF 20 ML, EPINEPHrine 30MG/30ML (OR ... INFIL SCH (06:00)
[2021-02-11] MEDS ORDERED: ACETAMINOPHEN 500 MG TAB PO SCH (06:00)
[2021-02-11] MEDS ORDERED: TRANEXAMIC ACID 1,000 MG **IV Intra-op IV SCH (06:00)
[2021-02-11] MEDS ORDERED: dexAMETHasone 4 MG TAB PO SCH (06:00)
[2021-02-11] MEDS ORDERED: FAMOTIDINE 20 MG TAB PO SCH (06:00)
[2021-02-11] MEDS ORDERED: METOCLOPRAMIDE HCL 10 MG TABLET PO SCH (06:00)
[2021-02-11] MEDS ORDERED: CeleBREX 200 MG CAP PO SCH (06:00)
[2021-02-11] MEDS ORDERED: Scopolamine 1 MG TDSY TD SCH (06:00)
[2021-02-11] MEDS ORDERED: ROPIVACAINE 0.5% 5 MG/ML 30 ML VIAL ONE (06:14)
[2021-02-11] MEDS ORDERED: EPINEPHrine INJ 1 MG/ML AMP ONE (06:15)
[2021-02-11] MEDS ORDERED: BUPIVACAINE 0.5 % 5 MG/1 ML PF 10ML VIAL ONE (06:15)
--- NOTE | 2021-02-11 07:09 | History & Physical Bridge Note ---
Date of Service February 11, 2021 History & Physical Bridge Note I have examined the patient, reviewed the History & Physical and in the interval since the performance of the History & Physical I have noted the following changes of clinical significance: no changes noted
[2021-02-11] MEDS ORDERED: ceFAZolin 2000MG 2,000 MG/15 ML SYR IV ONE (07:19)
[2021-02-11] MEDS ORDERED: ceFAZolin 2,000 MG/15 ML IV PUSH IV ONE (07:21)
[2021-02-11] MEDS ORDERED: ORTHO JOINT ANESTHETIC ONE (07:34)
[2021-02-11] MEDS ORDERED: ePHEDrine sulfate 50 MG/ML AMP IV PRN (07:55)
[2021-02-11] MEDS ORDERED: ONDANSETRON INJ 2 MG/ML 2 ML VIAL IV PRN ×2 (07:55→11:12)
[2021-02-11] MEDS ORDERED: ATROPINE SULFATE 0.1 MG/ML 10ML SYR IV PRN (07:55)
[2021-02-11] MEDS ORDERED: fentaNYL citrate 100 MCG/2 ML VIAL IV PRN (07:55)
[2021-02-11] MEDS ORDERED: PHENYLEPHRINE 100MCG/ML 5ML SYR IV PRN (07:55)
[2021-02-11] MEDS ORDERED: LABETALOL HCL IV 5 MG/ML 20ML IV PRN (07:55)
[2021-02-11] MEDS ORDERED: PROPOFOL IV EMULSION 10 MG/ML 20 ML VIAL IV ONE ×2 (07:56→09:23)
[2021-02-11] MEDS ORDERED: ONDANSETRON INJ 2 MG/ML 2 ML VIAL ONE (07:56)
[2021-02-11] MEDS ORDERED: fentaNYL citrate 100 MCG/2 ML VIAL ONE (07:57)
[2021-02-11] MEDS ORDERED: MIDAZOLAM HCL 1 MG/ML 2ML VIAL ONE (07:57)
[2021-02-11] MEDS ORDERED: PHENYLEPHRINE 100MCG/ML 5ML SYR ONE (08:21)
--- NOTE | 2021-02-11 09:23 | Post Operative Brief Note ---
Immediate Post Op Note v1 Date of Surgery February 11, 2021 Pre & Post Diagnosis Operation Date: 02/11/21 07:15 Pre-Op Diagnosis: Unilateral Primary Osteoarthritis left knee, varus deformity left knee, flexion contracture left Knee Post-Op Diagnosis: Unilateral Primary Osteoarthritis left knee, varus deformity left knee, flexion contracture left Knee I identified the patient and participated in the time-out.: Yes Procedure Operation Date: 02/11/21 07:15 Actual Procedures p Left cemented total Knee Arthroplasty with MRI matched Lopez & Nephew size 4 Oxinium femur, size 3 tibia, 32 mm patella and 10 mm posterior stabilized polyethylene (Left) - Jared Girard DO Surgeon Jared Girard DO Gardener Dean Pretty PA-C Estimated Blood Loss 5 Findings Consistent with Post-Op Diagnosis Specimens Bone and tissue left knee Drains Hemovac Drain (10 fr dual trocar) Anesthesia Type Spinal MAC Complications none Disposition Accompanied Patient To Recovery: No Disposition: Recovery Room
--- NOTE | 2021-02-11 10:02 | Operative Report (OR) ---
DATE OF OPERATION: 02/11/2021 PREOPERATIVE DIAGNOSES: 1. Left knee osteoarthritis. 2. Genu varum. 3. Flexion contracture. POSTOPERATIVE DIAGNOSES: 1. Left knee osteoarthritis. 2. Genu varum. 3. Flexion contracture. PROCEDURE: Left cemented total knee arthroplasty using a Lopez and Nephew MRI matched size 4 Oxinium femur, size 3 tibial component, 32 mm patella and a 10 mm posterior stabilized polyethylene. SURGEON: Jared Girard DO. PLANT SCIENCES PROFESSOR: Dean Pretty PA-C who was present for patient positioning, sterile prep and drape, management of retractors and instruments. He was present through the critical portions of the case including wound closure, application of sterile dressing and transport of the patient to recovery. ANESTHESIA: Spinal, MAC regional. SPECIMENS: Bone and tissue, left knee. DRAINS: Hemovac x2. COMPLICATIONS: None. BLOOD LOSS: 5 mL. PERTINENT HISTORY: This is a 75-year-old woman who has had chronic progressive and worsening left knee osteoarthritis with degenerative joint changes over the last several years. She has attempted and failed conservative management including modification of activities, anti-inflammatories, rest, use of a brace, use of an assistive device, physical therapy, physician-directed home exercises, steroid injections and viscosupplementation. Radiographs demonstrate degenerative arthritis with marginal osteophytes, subchondral sclerosis, subchondral cysts and loss of joint space. The patient was scheduled for surgery as indicated. DESCRIPTION OF PROCEDURE: The patient was taken to the Operating Suite and placed supine on the Operating Room table after the patient had been administered spinal anesthetic and adductor canal block the preop holding area. The patient was sedated. Proper operative site was identified. The tourniquet was placed high on the left lower extremity. Left lower extremity was then sterilely prepped and draped in the usual fashion. Elevated and exsanguinated with an Esmarch bandage. Tourniquet inflated to 325 mmHg. Next a midline 10-blade scalpel incision was made directly over the middle one-third of the patella extending to the level of the tibial tubercle. The incision was deepened through the subcutaneous tissue and meticulous hemostasis with electrocautery. Full-thickness skin flaps were developed taking care to avoid neurovascular bundles. Next, median parapatellar capsular incision was made 10-blade scalpel after the superior medial corner had been marked with a marking pen for later reapproximation. Next, patella was everted. Soft tissue releases were performed of the knee including along the anterior medial corner to the level of the MCL which was protected and released adjacent to the MCL with Randle elevator. Fat pad was resected anteriorly and small half martínez portion of tissue was resected at the superior margin of the dermal articular surface. Next, the patella thickness was measured with caliper and held in everted position with Parish. Next, sagittal saw was used to make orthogonal cuts to the level of the patellar nose. Caliper was used to remeasure the patella and the appropriate sized patellar button, in this case size 32 mm was felt to be most appropriate. The alignment guide was then put in place. Peg holes were drilled and alignment guide was then removed. Next, the femoral cutting block was placed in the distal aspect of the femur and pinned in place. Next the distal femoral cut was made based off the patient's anatomy and MRI patient matched cutting block. Next, a size #4 distal 4-in-1 cutting block was tamped in place then stabilized with pins. Next, the appropriate soft tissue retraction was made and anterior chamfer and posterior chamfer cuts were made with the sagittal saw. Next, the 4-in-1 cutting block was then removed followed by removal of all bone fragments. Next, attention was then directed toward the proximal tibia. Blunt Jerome was placed posterior to the tibia to protract it anteriorly and median and lateral sharp Jerome retractors were placed. Soft tissue and portion of the menisci were then resected at this time and MRI matched proximal tibial cutting block was then pinned in place and proximal tibial cut was made with sagittal saw. Alignment guide was removed. Pins were removed and the proximal fragment of the tibia was then sharply excised and removed. Next, proximal tibial tray trial size 3 was then pinned in place and this was felt to be well matched for the patient's anatomy, pinned in place and keel punch was then utilized with mallet. Keel punch was then removed and cervical laminar sales representative printing supplies was then placed in the medial compartment. The lateral compartment was then inspected for osteophytes and soft tissue impingement. There was found to be none. I then switched to the lateral compartment and medial compartment was then debrided of any soft tissue impingement. Next the laminar sales representative printing supplies was removed and the femoral trial, in this case size 4 was then malleted in place, pinned and then femoral notch milling guide was then placed anteriorly. This was then reamed and then punched with sharp punch and mallet. Next, the distal aspect of the femur was then inserted in notch guide and size 10 mm poly was inserted, reduced. Patellar button was then placed in trial and range of motion was performed. Next after range of motion and stability test was performed the implants were found to be appropriate size. Trials were all removed. The posterior capsule was injected with Orthomix. Next the joint was then cleansed with pulsatile lavage using approximately 3 liters normal saline with Ancef additive. Next all bony surfaces were the suctioned and dried and standard cementing technique was performed and all excess cement was then removed from around the implant site. A 10 mm posterior stabilized polyethylene bearing was implanted and checked for stability. The patellar button was then cemented in place and held in place with patellar clamp. Next, double lumen 10 Cypriot Hemovac drain was then placed and exiting anterolaterally and the capsule was closed using interrupted #1 Vicryl sutures. The dermis was closed using buried interrupted 2-0 Vicryl and the skin closed with skin linda. A sterile compressive dressing was applied from the toes to the groin and overwrapped with Bandar wrap. Tourniquet was released. The patient was awakened and taken to recovery in stable condition. I attest to the content of the Intraoperative Record and any orders documented therein. Any exceptions are noted below. MTDD
--- NOTE | 2021-02-11 10:45 | XRay Report ---
LEFT KNEE 2 VIEWS History: Left total knee arthroplasty. Degenerative arthritis. Postop. FINDINGS: The patient is status post a left total knee arthroplasty. The hardware is intact. No fract ure or dislocation. Skin linda and surgical drains are in place. IMPRESSION: Left total knee arthroplasty. No evidence for hardware complication. ACT 112: Negative or not required by law. Electronically signed by: Shan Allen M.D. 02/11/2021 10:43 AM
[2021-02-11] MEDS ORDERED: ALUMINUM/MAGNESIUM SUSP 30 ML UDC PO PRN (11:12)
[2021-02-11] MEDS ORDERED: diphenhydrAMINE Capsule 25 MG CAP PO PRN (11:12)
[2021-02-11] MEDS ORDERED: METOCLOPRAMIDE HCL INJ 5 MG/ML 2 ML VIAL IV PRN (11:12)
[2021-02-11] MEDS ORDERED: HYDROmorphone INJ 0.5 MG/0.5 ML SYR IV PRN (11:12)
[2021-02-11] MEDS ORDERED: bisacodyL 10 MG SUPP PR PRN (11:12)
[2021-02-11] MEDS ORDERED: SUMAtriptan succinate 100 MG TAB PO PRN (11:12)
[2021-02-11] MEDS ORDERED: ceFAZolin 2000MG 2,000 MG/15 ML SYR IV SCH (11:12)
[2021-02-11] MEDS ORDERED: ALBUTEROL 0.083% NEBU SOLN 3 ML VIAL INH PRN (11:12)
[2021-02-11] MEDS ORDERED: NAPHAZOLIN/PHENIRAMIN OPH SOLN 75 DROPS/5 ML BTL OP PRN (11:12)
[2021-02-11] MEDS ORDERED: ALPRAZolam 0.25 MG TABLET PO PRN (11:12)
[2021-02-11] MEDS ORDERED: NALOXONE HCL 0.4 MG/1 ML VIAL/CARP IV PRN (11:12)
[2021-02-11] MEDS ORDERED: MAGNESIUM HYDROXIDE SUSP 30 ML UDC PO PRN (11:12)
[2021-02-11] MEDS ORDERED: ALBUTEROL HFA 8 GM INHALER INH PRN (11:12)
--- NOTE | 2021-02-11 11:19 | Anesthesiology Progress Note ---
Date of Service February 11, 2021 Anesthesia Post Procedure Vital Signs Vital Signs: Temp Pulse Pulse Resp BP Pulse Ox 02/11/21 10:55 79 16 133/57 L 97 02/11/21 10:40 80 18 119/59 L 96 02/11/21 10:30 36.6 C 79 18 125/57 L 95 02/11/21 10:20 79 14 130/55 L 99 02/11/21 10:10 81 18 121/51 L 100 02/11/21 10:09 36.5 C 77 17 120/52 L 100 02/11/21 05:49 36.9 C 77 20 142/68 H 97 Pain Intensity Left Knee: Pain Intensity: 4 Transfer of Care Handoff Completed per policy Notes Mental Status: alert / awake / arousable Patient Amnestic to Procedure: Yes Nausea / Vomiting: adequately controlled Pain: adequately controlled Airway Patency, RR, SpO2: stable & adequate BP & HR: stable & adequate Hydration State: stable & adequate Neuraxial Anesthesia: was administered and sensory block is resolving Anesthetic Complications: no major complications apparent and Pt Satisfied with anesthetic care
[2021-02-11] MEDS ORDERED: ARTIFICIAL TEARS OP OINT 3.5 GM TUBE OP PRN (11:41)
[2021-02-11] MEDS: SODIUM CHLORIDE 0.9% 1000ML 1,000 ML IV SCH ×2 (11:46→21:53)
[2021-02-11] MEDS ORDERED: PHARMACY GLYCEMIC MGMT CONSULT SCH (12:14)
[2021-02-11] MEDS ORDERED: GLUCOSE 10 TABS/TUBE PO PRN (12:30)
[2021-02-11] MEDS ORDERED: DEXTROSE 50% 50 ML SYRINGE IV PRN (12:30)
[2021-02-11] MEDS ORDERED: GLUCOSE 40% GEL 15 GM TUBE PO PRN (12:30)
[2021-02-11] MEDS ORDERED: LANTUS PER UNIT CHARGE SQ ONE (12:30)
[2021-02-11] MEDS ORDERED: CARBOHYDRATES FOR HYPOGLYCEMIA PO PRN (12:30)
[2021-02-11] MEDS ORDERED: GLUCAGON FOR INJ 1 MG VIAL SQ PRN (12:30)
[2021-02-11] MEDS: INSULIN ASPART 100 UNITS/ML 3 ML PEN SC SCH ×3 (12:54→21:56)
[2021-02-11] MEDS: ACETAMINOPHEN 500 MG TAB PO SCH ×2 (13:09→21:56)
--- NOTE | 2021-02-11 13:53 | Pharmacy Report ---
Pharmacy Glycemic Short Note 2 - Date of Service February 11, 2021 - Glycemic Short BSG Results (Last 24 hours): 02/11/21 02/11/21 02/11/21 05:41 10:08 11:45 POC Glucose 125 H 133 H 147 H OUTPATIENT ANTIDIABETIC REGIMEN: * Januvia 100mg PO QAM ASSESSMENT: * 75 year old female s/p TKA, received dexamethasone 8mg PO pre-op, blood sugar 147mg/dl * Pt is maintained on oral antidiabetic agents as an outpatient * Oral agents are not recommended for inpatient use d/t drug interactions, changing PO intake, and difficulty titrating for acute hyper/hypoglycemia. ADA recommends re-initiating outpatient oral agents 1-2 days prior to discharge if/when appropriate if they were held on admission. * Will hold oral agents for admission and utilize SQ basal bolus insulin regimen which is the recommended regimen for inpatient glycemic control. * Will initiate weight based insulin dosing for insulin bogdan patient and titrate based on BSG trends. PLAN FOR INPATIENT GLYCEMIC CONTROL: * Hold outpatient oral diabetes medications * Basal insulin * Lantus 15 units SQ x 1 dose now, further dosing tomorrow if needed * Bolus insulin * NovoLog per scale ACHS or Q6hrs while NPO * Goal Range: Low 110 mg/dL - High 140 mg/dL * Correction Factor: 25 mg/dL/unit * Nutritional / Prandial insulin per carb ratio of 1 unit per 8 grams CHO consumed PLAN FOR DISCHARGE: * A1c 6.4% at goal, continue Januvia.
--- NOTE | 2021-02-11 15:51 | Hospitalist Consultation ---
Date of Consultation February 11, 2021 Assessment & Plan (1) History of total left knee replacement: Patient is postoperative from total knee replacement, further treatment per primary service DVT prophylaxis with Xarelto (2) Hyperlipidemia: Atorvastatin 10 mg daily (3) Hypertension: Blood pressure last recorded 117/66 Patient is on lisinopril 10 mg daily, hydrochlorothiazide 25 mg daily (4) Hypothyroidism: On levothyroxine 75 mg daily (5) Diabetes mellitus, type 2: On sliding scale I do see patient was on sitagliptin as an outpatient, will reorder (6) Chronic obstructive pulmonary disease: Continue outpatient treatment with Symbicort and Incruse (7) Chronic kidney disease, stage 3a: Creatinine appears to be close to baseline, will recheck in the morning. History of Present Illness Reason for Consultation: Medical management Requesting Physician: pieter Attending Physician: Jared Girard DO History of Present Illness This is a 75-year-old female with past medical history of hypertension, hyperlipidemia, type 2 diabetes, and COPD that presented electively for a left total knee replacement with Dr. Girard. Per records, this was performed earlier this morning without any significant complications. Our services now been consulted by Dr. Girard for medical management. Patient was seen and examined. She appears to be comfortable sitting in bed. She denies any significant pain in her knee postoperatively but admits that she had some pain medications. She also denies any systemic symptoms such as chest pain, shortness breath, abdominal pain, nausea vomiting, fever or chills. Patient is otherwise comfortable. She has not yet ambulated. Allergies Allergy/AdvReac Type Severity Reaction Status Date / Time Iodinated Contrast Media Allergy Intermediate swelling Verified 02/11/21 05:38 at injection site latex Allergy Mild ITCHY SKIN Verified 12/21/20 16:42 WITH GLOVES aspirin Allergy Unknown Unknown Verified 01/12/21 12:21 doxycycline Allergy Unknown Unknown Verified 12/21/20 16:42 Penicillins Allergy Unknown as child- Verified 02/11/21 05:38 has never had as adult-unsure Home Medications Medication Instructions Recorded Confirmed Type atorvastatin 10 mg tablet 10 mg PO QPM 07/28/19 02/11/21 History esomeprazole magnesium 40 mg 40 mg PO QPM cap 07/28/19 02/11/21 History capsule,delayed release hydrochlorothiazide 25 mg tablet 25 mg PO QAM 07/28/19 02/11/21 History levothyroxine 75 mcg capsule 75 mcg PO QAM 07/28/19 02/11/21 History lisinopril 10 mg tablet 10 mg PO QPM 07/28/19 02/11/21 History loratadine 10 mg capsule 20 mg PO QAM 07/28/19 02/11/21 History potassium chloride 20 mEq 20 meq PO QPM 07/28/19 02/11/21 History tablet,extended release sitagliptin 100 mg tablet 100 mg PO QAM 07/28/19 02/11/21 History sucralfate 1 gram tablet 1 gm PO BID 07/28/19 02/11/21 History albuterol sulfate 90 mcg/actuation 2 puffs INH Q4H PRN #3 inhaler 02/13/20 02/11/21 Rx aerosol inhaler alprazolam [Xanax] 0.25 mg PO BID PRN 02/27/20 02/11/21 History budesonide-formoterol HFA 160 2 inh INH BID #3 inhaler 10/11/20 02/11/21 Rx mcg-4.5 mcg/actuation aerosol inhaler umeclidinium 62.5 mcg/actuation 1 inh INHALATION DAILY #3 inhaler 10/29/20 02/11/21 Rx blister powder for inhalation albuterol sulfate 2.5 mg INHALATION Q4H PRN 11/15/20 02/11/21 History artificial tears(hypromellose) 0.3 1 drp OPHTHALMIC (EYE) ONCE PRN g 11/15/20 02/11/21 History % eye gel magnesium 200 mg tablet 400 mg PO DAILY tab 11/15/20 02/11/21 History naphazoline 0.025 %-pheniramine 1 drp OPHTHALMIC (EYE) QID PRN 11/15/20 02/11/21 History 0.3 % eye drops sumatriptan succinate 100 mg tablet 100 mg PO Q2H PRN 11/15/20 02/11/21 History Patient History Medical History Anxiety Asthma Well controlled and stable, albuterol rescue 1-2x per month Barretts esophagus Chronic obstructive pulmonary disease Controlled and stable- follows with pulm Diabetes mellitus, type 2 Well controlled and stable GERD (gastroesophageal reflux disease) Well controlled and stable Hiatal hernia History of nephrolithiasis Hyperlipidemia Hypertension Hypothyroidism Osteoarthritis Scoliosis of thoracolumbar spine SOB (shortness of breath) on exertion Only in significant humidity Surgical History H/O nasal septoplasty History of bilateral tubal ligation History of cholecystectomy History of colonoscopy X MULTIPLE History of cystoscopy History of esophagogastroduodenoscopy (EGD) History of removal of ureteral stent History of right knee joint replacement 03/2020 [facility] History of ureter stent Family History Sister Family history of reaction to anesthesia PONV Family history of diabetes mellitus Social History Smoking Status: Never smoker Second Hand Exposure: Yes (as a child and was a smoker); Do You Dip or Chew Tobacco: No; Hx Alcohol Use: No Hx Substance Use: No Preferred Language: Tamazight Communication Ability: Effective Permastone Installer Required: No Beliefs That Will Affect Care: None marital status: / Current Living Situation: Alone Feels Safe at Home: Yes Safety Concerns: Feels Safe At This Time Assistive Devices: Cane, Denture - Upper, Denture - Lower and Glasses Assistive Devices Comment: cane prn Review of Systems Constitutional: no fever, no chills, no weakness, no weight loss and no weight gain Eyes: as per Subjective / HPI Respiratory: no cough, no chest congestion, no dyspnea and no dyspnea on exertion Cardiovascular: no chest pain, no orthopnea, no palpitations, no lightheadedness and no edema Gastrointestinal: no abdominal pain, no nausea, no vomiting, no constipation and no diarrhea/loose stools Genitourinary: no dysuria, no difficulty urinating, no urinary frequency, no urinary hesitancy, no urinary urgency and no flank pain Musculoskeletal: no back pain, no neck pain, no joint pain, no stiffness and no myalgia Integumentary: no rash Neurologic: no gait abnormality, no unsteadiness, no falls and no generalized weakness Physical Exam Constitutional: cooperative; no acute distress Neck: trachea midline, no thyromegaly Respiratory: normal respiratory effort Auscultation: lungs clear to auscultation bilaterally; no crackles, no rales, no rhonchi and no wheezes Cardiovascular: Rate/Rhythm: regular rate and regular rhythm Heart Sounds: normal S1 and normal S2; no murmur Gastrointestinal (Abdomen): Inspection/Auscultation: abdomen normal to inspection Percussion/Palpation: abdomen soft; abdomen nontender, no guarding, abdomen not rigid and no hepatosplenomegaly Musculoskeletal: Left leg dressed, drain in place with minimal sinus fluid. Distal pulses intact Skin: no rashes, warm and dry Results & Data Results & Data ([facility]) Vital Signs (Past 12 Hours) Vital Signs Temp Pulse Pulse Pulse Resp BP Pulse Ox 02/11/21 14:00 36.7 C 81 16 117/66 93 02/11/21 12:30 82 18 113/65 92 02/11/21 11:30 36.5 C 69 16 116/73 97 02/11/21 11:15 36.8 C 68 18 116/60 98 02/11/21 11:00 36.6 C 69 18 115/59 L 98 02/11/21 10:55 79 16 133/57 L 97 02/11/21 10:40 80 18 119/59 L 96 02/11/21 10:30 36.6 C 79 18 125/57 L 95 02/11/21 10:20 79 14 130/55 L 99 02/11/21 10:10 81 18 121/51 L 100 02/11/21 10:09 36.5 C 77 17 120/52 L 100 02/11/21 05:49 36.9 C 77 20 142/68 H 97 PG Care Time/CCT Total # of Minutes Spent Total Time Spent with Patient: Total time spent is greater than 50% in coordination of care (as documented) at patient's floor/unit and/or counseling patient: Coding Level of Care Code 63687 Inpt Consult Level 3 Diagnoses History of total left knee replacement Z96.652 Hyperlipidemia E78.5 Hypertension I10 Hypothyroidism E03.9 Diabetes mellitus, type 2 E11.9 Chronic obstructive pulmonary disease J44.9 Chronic kidney disease, stage 3a N18.3
[2021-02-11] MEDS ORDERED: Scopolamine CHECK PATCH PLACEMENT SCH (16:00)
[2021-02-11] MEDS ORDERED: TRANEXAMIC ACID / 0.7% NACL 1,000 MG/100 ML BAG IV SCH (16:15)
[2021-02-11] MEDS: KETOROLAC TROMETHAMINE 15 MG/ML VIAL IV PRN (16:23)
[2021-02-11] MEDS: ceFAZolin 2000MG 2,000 MG/15 ML SYR IV SCH (16:23)
[2021-02-11] MEDS: oxyCODONE HCL IR 5 MG TAB (IMMEDIATE RELEASE) PO PRN (18:27)
[2021-02-11] MEDS ORDERED: lisinopril 10 MG TAB PO SCH (21:00)
[2021-02-11] MEDS ORDERED: ATORVASTATIN 10 MG TAB PO SCH (21:00)
[2021-02-11] MEDS ORDERED: PANTOprazole 40 MG TAB PO SCH (21:00)
[2021-02-11] MEDS ORDERED: POTASSIUM CHLORIDE CRTAB 20 MEQ TABCR PO SCH (21:00)
[2021-02-11] MEDS ORDERED: SENNA 8.6 MG TAB PO SCH (21:00)
[2021-02-11] MEDS: DOCUSATE SODIUM 100 MG CAP PO SCH (21:53)
[2021-02-11] MEDS: SUCRALFATE 1 GM TAB PO SCH (21:55)
[2021-02-11] MEDS: CeleBREX 200 MG CAP PO SCH (21:55)
[2021-02-12] MEDS: ceFAZolin 2000MG 2,000 MG/15 ML SYR IV SCH (00:10)
[2021-02-12] MEDS: KETOROLAC TROMETHAMINE 15 MG/ML VIAL IV PRN (03:06)
[2021-02-12 05:39] LABS: Basophils # (auto) 0.01 K/uL (0-0.2); Basophils % (auto) 0.1 %; Hematocrit (blood only) 29.8 % (37-47); Hemoglobin 9.7 g/dL (12.0-16.0); Immature Granulocytes # (auto) 0.04 K/uL (0.00-0.02); Immature Granulocytes % (auto) 0.3 %; Lymphocytes # (auto) 1.37 K/uL (1.2-3.4); Lymphocytes % (auto) 10.2 %; Mean Corpuscular Hemoglobin 29.8 pg (25-34); Mean Corpuscular Hgb Conc 32.6 g/dL (32-36); Mean Corpuscular Volume 91.7 fL (80-100); Mean Platelet Volume 8.7 fL (7.4-10.4); Monocytes # (auto) 1.75 K/uL (0.11-0.59); Neutrophils # (auto) 10.25 K/uL (1.4-6.5); Neutrophils % (auto) 76.4 %; Platelet Count 279 K/uL (130-400); RDW Coefficient of Variation 15.5 % (11.5-14.5); RDW Standard Deviation 52.1 fL (36.4-46.3); Red Blood Count 3.25 M/uL (4.2-5.4); White Blood Count 13.42 K/uL (4.8-10.8)
[2021-02-12 06:10] LABS: BUN Creatinine Ratio 26.9 (10-20); Calcium 8.6 mg/dl (8.5-10.1); Creatinine Clr Calc Pharmacy 39.9 ml/min; Est GFR (African American) 62.9 ml/min; Est GFR (Non-African American) 54.3 ml/min; Potassium 4.4 mmol/L (3.5-5.1)
[2021-02-12] MEDS ORDERED: LEVOTHYROXINE SODIUM 75 MCG TABLET PO SCH (06:30)
[2021-02-12] MEDS: ACETAMINOPHEN 500 MG TAB PO SCH (06:47)
[2021-02-12] MEDS: oxyCODONE HCL IR 5 MG TAB (IMMEDIATE RELEASE) PO PRN (07:49)
--- NOTE | 2021-02-12 08:30 | Orthopedic Progress Note ---
Date of Service February 12, 2021 Assessment & Plan (1) Status post total left knee replacement: POD#1 left TKA -PT/OT -Pain management as written -DVT prophylaxis-SCDs, TEDs, Xarelto 10mg daily x 2 weeks -AM labs-hemoglobin at 9.7 from 11.6 preoperatively. Mild leukocytosis likely reactive due to surgical stress, perioperative steroids -D/C planning-home with home therapy when stable. Plan on discharge later today if PT goes well. Admission and Anticipated Discharge Date Admission Date: February 11, 2021 Subjective Patient is doing well this morning. No current complaints. Pain is well controlled. Denies chest pain, sob, dizziness, headache, fever, chills. Review of Systems Review of Systems: All systems reviewed & are unremarkable except as noted in HPI & below Physical Exam Physical Exam: Left knee dressing is c/d/i. Hemovac in place. toes mobile with good dorsiflexion. No calf tenderness. Distally n/v status and sensation intact. Constitutional: well developed and well nourished; no acute distress Results & Data ([facility]) Vital Signs (Past 12 Hours) Vital Signs Temp Pulse Resp BP Pulse Ox 02/12/21 07:03 36.4 C L 61 16 113/65 95 02/12/21 03:00 36.9 C 64 15 131/51 L 94 02/11/21 23:25 36.4 C L 55 L 16 110/69 93
[2021-02-12] MEDS: CeleBREX 200 MG CAP PO SCH (08:55)
[2021-02-12] MEDS: SUCRALFATE 1 GM TAB PO SCH (08:55)
[2021-02-12] MEDS: DOCUSATE SODIUM 100 MG CAP PO SCH (08:55)
[2021-02-12] MEDS ORDERED: SITagliptin PHOSPHATE 100 MG TAB PO SCH (09:00)
[2021-02-12] MEDS ORDERED: FLUTICASONE/VILANTEROL 100/25MCG 14 PUFFS/INHALER INH SCH (09:00)
[2021-02-12] MEDS ORDERED: UMECLIDINIUM BROMIDE 62.5MCG/BLISTER 7 PUFFS/INHALER INH SCH (09:00)
[2021-02-12] MEDS: INSULIN ASPART 100 UNITS/ML 3 ML PEN SC SCH (09:00)
[2021-02-12] MEDS ORDERED: hydroCHLOROthiazide 25 MG TAB PO SCH (09:00)
[2021-02-12] MEDS ORDERED: MULTIVITAMIN TAB PO SCH (09:00)
[2021-02-12] MEDS ORDERED: LORATADINE 10 MG TAB PO SCH (09:00)
[2021-02-12] MEDS ORDERED: MAGNESIUM OXIDE 400 MG TAB PO SCH (09:00)
[2021-02-12] MEDS ORDERED: RIVAROXABAN 10 MG TABLET PO SCH (09:00)
--- NOTE | 2021-02-17 15:27 | Discharge Summary ---
Date of Service February 17, 2021 Admission HPI Per Admitting Provider This is a patient with chronic left knee pain that has been treated conservatively for knee DJD. She has failed all conservative management and is now being set up for surgical tx. Principal Diagnosis left knee osteoarthritis Discharge Exam Constitutional well developed and well nourished; no acute distress ENMT external ear and nose normal, oropharynx normal Neck trachea midline, no thyromegaly Respiratory normal respiratory effort, lungs clear to auscultation Cardiovascular Rate/Rhythm: regular rate and regular rhythm Gastrointestinal (Abdomen) normal bowel sounds, soft, nontender, no hepatosplenomegaly Musculoskeletal Knee: + surgical incision (left anterior knee--Silverlon dressing in place); no skin erythema and no crepitation with knee ROM (left) Skin no rashes, warm and dry Trauma: no evidence of skin trauma Neurologic normal touch/pain/proprioception Psychiatric A+Ox3, euthymic affect Speech: normal rate/rhythm/volume of speech Lymphatic no cervical or axillary lymphadenopathy Discharge Data Allergies Allergy/AdvReac Type Severity Reaction Status Date / Time Iodinated Contrast Media Allergy Intermediate swelling Verified 02/11/21 05:38 at injection site latex Allergy Mild ITCHY SKIN Verified 12/21/20 16:42 WITH GLOVES aspirin Allergy Unknown Unknown Verified 01/12/21 12:21 doxycycline Allergy Unknown Unknown Verified 12/21/20 16:42 Penicillins Allergy Unknown as child- Verified 02/11/21 05:38 has never had as adult-unsure Consultations 02/11/21 11:12 Consult Hospitalist Routine Procedures Performed Operation Date: 02/11/21 07:15 Actual Procedures p Left Total Knee Arthroplasty(Left) - Jared Girard DO Ordered Studies 05 05:00 [facility] Rout[facility] Hospital Course (1) Status post total left knee replacement: Patient underwent the above noted procedure and on POD #1 she was doing w ell with pain control and PT. She ambulated well. She was then d/c'd home on POD #1. POD#1 left TKA -PT/OT -Pain management as written -DVT prophylaxis-SCDs, TEDs, Xarelto 10mg daily x 2 weeks -AM labs-hemoglobin at 9.7 from 11.6 preoperatively. Mild leukocytosis likely reactive due to surgical stress, perioperative steroids -D/C planning-home with home therapy when stable. Plan on discharge later today if PT goes well. Total Time Total Time Spent Total Time Spent (In Minutes): 20 Total Time Includes: Examination of the Patient, Discharge Planning and Medication Reconciliation Discharge Plan Discharge Items Patient Disposition: Home - Home Health Services Reason For Visit: Unilateral Primary Osteoarthritis, Left Knee Discharge Diagnosis: Left knee osteoarthritis status post total knee arthroplasty Activity: Per Instructions section Non-emergency contact: Surgeon Call non-emergency contact if: you have any medication questions, your pain is not controlled, your pain is worsening, you have a fever, your temperature is above 101, your wound has increased redness and your wound has increased elier inage Follow-up/Referrals: Mauri Herbert DO [Primary Care Provider] - Diet: Regular Addtl Attending Provider Instructions: ACTIVITY RECOMMENDATIONS: SELF CARE INSTRUCTIONS AFTER TOTAL KNEE REPLACEMENT A. You may need to continue a physical therapy program after discharge from the hospital. There are several options available to you. Your doctor will assist you in selecting the best one for you. 1. An out-patient facility 2 to 3 times a week for therapy or home therapy. 2. Continue working on all exercises taught to you in the hospital. Your goals should be to increase bending of your knee to 90 degrees and beyond and to fully straighten your knee. B. You may progress at your own pace from walking with a walker or crutches to a cane; then to no assistive devices. C. Make walking a part of your daily routine. Be up as much as comfortable with rest periods throughout the day. Rest with leg elevation is very important. Use the ice wrap frequently for the first 3-4 weeks. D. There are no restrictions on activities. 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 E. Wear the long elastic stockings (JARVIS hose) 20 hours a day for one month after surgery. They can be removed several times a day for laundering and for a bath. F. Silverlon: You have a Silverlon dressing on the right knee incision. It will remain in place for 7 days from the day of your surgery. After 7 days, you may remove the dressing, just as you would remove a bandaid. You may shower with the Silverlon dressing in place. However, if you notice any water within the dressing, the dressing should be removed. You may cover the incision with a dry dressing once the silverlon is removed if there is any drainage. SPECIAL CARE INSTRUCTIONS: VERY IMPORTANT TO READ AND REVIEW A. Take Xarelto (blood thinning medications) as directed by your doctor. If on Coumadin, have a pro-time (blood test) drawn according to your doctor's instructions. This will tell the doctor how well the Coumadin is thinning your blood. B. There are a few signs you need to watch for after you are home. Call [facility] if you notice any of the followin. Increased severe knee pain. Some pain is expected especially when you exercise. 2. Increased swelling in your leg or knee; pain or swelling of the calf muscle in either lower leg. 3. Any fluid drainage from the incision. 4. Shortness of breath or chest pain. C. Please call [facility] at if you have any concerns or questions about your operation or recovery. The doctor or his nurse will return your call promptly. D. You must take antibiotics before dental work, bladder, bowel or other surgery. Your doctor will provide you with a permanent care to carry describing this precaution. * CALL IF INCREASED PAIN, REDNESS, DRAINAGE OR FEVER GREATER THAT 101 F. * WEAR JARVIS HOSE 20 HOURS PER DAY FOR 4 WEEKS. FOLLOW UP VISIT: If appointment is not already scheduled: Please call [facility] to make a follow-up appointment for 2 weeks after your surgery to have linda removed at . Pending Studies at Discharge: No Stand-Alone Forms: [facility] Opioid Pain Management, Smoking Cessation Medications and DC Order Prescriptions: New Xarelto 10 mg Tablet 10 mg PO DAILY Qty: 14 RF: 0 acetaminophen 500 mg Tablet 1,000 mg PO Q8 Qty: 60 RF: 0 oxycodone 5 mg Tablet 5 - 10 mg PO .Q4h-6h MDD 6 PRN (Reason: pain) Qty: 30 RF: 0 Continued albuterol sulfate [Proventil HFA] 90 mcg/actuation HFA aerosol inhaler 2 puffs INH Q4H PRN (Reason: shortness of breath or wheezing) Qty: 3 RF: 1 Symbicort 160-4.5 mcg/actuation HFA aerosol inhaler 2 inh INH BID Qty: 3 RF: 1 Incruse Ellipta 62.5 mcg/actuation blister with device 1 inh inhalation DAILY Qty: 3 RF: 1 atorvastatin 10 mg tablet 10 mg PO QPM RF: 0 sucralfate [Carafate] 1 gram tablet 1 gm PO BID RF: 0 hydrochlorothiazide 25 mg tablet 25 mg PO QAM RF: 0 Januvia 100 mg tablet 100 mg PO QAM RF: 0 potassium chloride 20 mEq tablet extended release 20 meq PO QPM RF: 0 levothyroxine 75 mcg capsule 75 mcg PO QAM RF: 0 lisinopril 10 mg tablet 10 mg PO QPM RF: 0 loratadine 10 mg capsule 20 mg PO QAM RF: 0 esomeprazole magnesium [Nexium] 40 mg capsule,delayed release(DR/EC) 40 mg PO QPM RF: 0 sumatriptan succinate 100 mg tablet 100 mg PO Q2H PRN (Reason: migraines) RF: 0 albuterol sulfate 2.5 mg /3 mL (0.083 %) solution for nebulization 2.5 mg inhalation Q4H PRN (Reason: sob) RF: 0 Naphcon-A 0.025-0.3 % drops 1 drp ophthalmic (eye) QID PRN (Reason: ud) RF: 0 magnesium 200 mg tablet 400 mg PO DAILY RF: 0 Systane Gel 0.3 % gel 1 drp ophthalmic (eye) ONCE PRN (Reason: ud) RF: 0 alprazolam [Xanax] 0.25 mg Tablet 0.25 mg PO BID PRN (Reason: Anxiety) RF: 0 Discharge Orders: Discharge Order (Routine); Ordered 02/12/21 Ordered By: Shakir Nickerson/Other Patient Handouts: Managing Type 2 Diabetes, A1C Admission Data Admit Date/Time: 02/11/21 10:23 Attending Provider: Jared Girard Admit Provider: Dean Pretty Primary Care Provider: Mauri Herbert Other Providers: [facility] ; Mel Caldera ; Abdi Melo ; Sánchez Pereira ; Lance Rutledge ; Ruiz Tamayo ; Daniel Lucas ; Ashlie Alejo ; Karen Hennessy ; Jose Maria Melendez ; Marianela Cortes ; Jackie Moore ; Emmett Aleman. ; Tucker Wick ; Kelby Pascual ; Joey Burroughs ; Juan J Perez ; Danish Roper ; Abdi Jones. ; Nain Lopez ; Dee Cortez ; Marcelo Hunter ; Chaparro Lopez Other Interventions: Discharge Summary Assessment (RN) Last Done: 02/12/21 11:33
== END 2021-02-12 12:22 | disposition home health service (06) | DRG 470 ==
LOC: 3E 05:12 → ASU 05:12 → OBSVTOIN 10:23